=== PATIENT | female | born 1970 | race Caucasian/White ===

== ENCOUNTER 2017-07-26 10:19 | Inpatient (IN) | payer OTHER ==
--- NOTE | 2017-07-26 10:50 | HP ---
CIWA Score - CIWA Score Nausea/Vomitin-Mild Nausea/No Vomiting Muscle Tremors: 4-Moderate,w/Arms Extend Anxiety: 4-Mod. Anxious/Guarded Agitation: 1-Slight > Activity Paroxysmal Sweats: 1-Minimal Palms Moist Orientation: 0-Oriented Tacttile Disturbances: 1-Very Mild Itch/Numbness Auditory Disturbances: 1-Very Mild Visual Disturbances: 1-Very Mild Sensitivity Headache: 2-Mild CIWA-Ar Total Score: 16 Admission ROS BHS - HPI Chief Complaint: I need help Allergies/Adverse Reactions: Allergies Allergy/AdvReac Type Severity Reaction Status Date / Time No Known Allergies Allergy Unverified 01/26/13 13:18 History of Present Illness: 46 yo woman here for detox from alcohol. First time in detox. Patient reports moving here from [place]. She is on methadone program at [facility] - dosed today , 90mg. Patient on percocet 10 qid but aware we cannot give it to her here. She is also on prescribed xanax tid and aware she cannot receive that - asking for valium detox. Exam Limitations: Clinical Condition - Ebola screening Have you traveled outside of the country in the last 21 days: No Have you had contact with anyone from an Ebola affected area: No Do you have a fever: No - Review of Systems Constitutional: Loss of Appetite, Malaise, Changes in sleep, Weakness EENT: reports: No Symptoms Reported Respiratory: reports: No Symptoms reported Cardiac: reports: No Symptoms Reported GI: reports: Poor Appetite, Indigestion : reports: Frequency Musculoskeletal: reports: Back Pain, Joint Pain, Muscle Pain Integumentary: reports: No Symptoms Reported Neuro: reports: Headache Endocrine: reports: No Symptoms Reported Hematology: reports: No Symptoms Reported Psychiatric: reports: Judgement Intact, Mood/Affect Appropiate, Orientated x3, Anxious Other Systems: Reviewed and Negative Patient History - Patient Medical History Hx Anemia: No Hx Asthma: No Hx Chronic Obstructive Pulmonary Disease (COPD): No Hx Cancer: No Hx Cardiac Disorders: No Hx Hypertension: Yes Hx Hypercholesterolemia: No Hx Pacemaker: No HX Cerebrovascular Accident: No Hx Seizures: Yes (drug related last 4 months ago) Hx Diabetes: No Hx Liver Disease: No Hx Genitourinary Disorders: No Hx Sexually Transmitted Disorders: No Hx Renal Disease (ESRD): No Hx Thyroid Disease: No Hx Human Immunodeficiency Virus (HIV): No Hx Hepatitis C: No Hx Depression: Yes (with anxiety - on meds) Hx Suicide Attempt: No (denies) Hx Bipolar Disorder: Yes Hx Schizophrenia: No - Patient Surgical History Past Surgical History: Yes Other Surgical History: tonsillectomy - PPD History Previous Implant?: Yes Documented Results: Negative w/o proof Implanted On Prior R Admission?: No PPD to be Administered?: Yes - Reproductive History Patient is a Female of Child Bearing Age (11 -55 yrs old): Yes - Smoking Cessation Smoking history: Smoker current status UNK Have you smoked in the past 12 months: No Aproximately how many cigarettes per day: 0 Hx Chewing Tobacco Use: No - Substance & Tx. History Hx Alcohol Use: Yes Hx Substance Use: Yes Substance Use Type: Alcohol, Cocaine Hx Substance Use Treatment: Yes - Substances Abused Alcohol Route: Oral Frequency: Daily Amount used: 1/5 vodka; two six packs 18 oz beer Age of first use: 14 Date of Last Use: 07/26/17 Cocaine Route: Inhalation Frequency: Daily Amount used: 1gm Age of first use: 46 Date of Last Use: 07/25/17 Family Disease History - Family Disease History Family Disease History: Heart Disease: Mother (living, drug user - on methadone) , [place]: Brother (one - Noel sarcoma), Respiratory: Father (living ), Other: Father, Mother, Brother, Sister (one - - overdose), Daughter ( two - ages 18,21 - one 'special needs') Admission Physical Exam [facility] - Physical General Appearance: Yes: Nourished, Appropriately Dressed, Moderate Distress, Tremorous, Anxious HEENTM: Yes: Hearing grossly Normal, Normal ENT Inspection, Normocephalic, Normal Voice, Pharynx Normal Respiratory: Yes: Normal Breath Sounds, No Respiratory Distress Neck: Yes: No masses,lesions,Nodules, Supple Breast: Yes: Breast Exam Deferred Cardiology: Yes: Regular Rhythm, Regular Rate Abdominal: Yes: Flat, Soft Genitourinary: Yes: Within Normal Limits Back: Yes: Normal Inspection Musculoskeletal: Yes: full range of Motion, Gait Steady, Back pain, Other (knee pain - no erythema, no redness or swelling) Extremities: Yes: Normal Capillary Refill, Normal Inspection, Non-Tender Neurological: Yes: Fully Oriented, Alert, Normal Mood/Affect, Normal Response Integumentary: Yes: Normal Color, Warm Lymphatic: Yes: Within Normal Limits - Diagnostic (1) Alcohol dependence with uncomplicated withdrawal Current Visit: Yes Status: Chronic (2) Cocaine dependence Current Visit: Yes Status: Chronic Qualifiers: Substance use status: uncomplicated Qualified Code(s): F14.20 - Cocaine dependence, uncomplicated; F14.20 - Cocaine dependence, uncomplicated; F14.20 - Cocaine dependence, uncomplicated (3) HTN (hypertension) Current Visit: Yes Status: Chronic Qualifiers: Hypertension type: essential hypertension Qualified Code(s): I10 - Essential (primary) hypertension; I10 - Essential (primary) hypertension; I10 - Essential (primary) hypertension (4) History of seizure Current Visit: Yes Status: Chronic (5) Nicotine dependence Current Visit: Yes Status: Chronic Qualifiers: Nicotine product type: cigarettes (6) Arthritis Current Visit: Yes Status: Chronic Comment: rEFER TO X-RAY KNEE AND SPINE (7) Back pain Current Visit: Yes Status: Chronic Qualifiers: Back pain location: low back pain Chronicity: chronic Back pain laterality: midline Sciatica presence: without sciatica Qualified Code(s): M54.5 - Low back pain; M54.5 - Low back pain Comment: Referred to [facility] for x-rays (8) Knee pain, bilateral Current Visit: Yes Status: Chronic Qualifiers: Chronicity: chronic Qualified Code(s): M25.561 - Pain in right knee ; M25.561 - Pain in right knee; M25.562 - Pain in left knee; M25.562 - Pain in left knee Cleared for Admission [facility] - Detox or Rehab [facility] Level of Care: Medically Managed Detox Regimen/Protocol: Valium [facility] Breath Alcohol Content Breath Alcohol Content: 0.062
[2017-07-26 11:03] VITALS: BMI 28.8
[2017-07-26] MEDS ORDERED: hydrOXYzine PAMOATE 50 MG CAPSULE (FP) PO PRN (11:17)
[2017-07-26] MEDS ORDERED: NICOTINE POLACRILEX 2 MG GUM BUC PRN (11:17)
[2017-07-26] MEDS ORDERED: MAGNESIUM CITRATE 300 ML BOTTLE PO PRN (11:17)
[2017-07-26] MEDS ORDERED: guaiFENesin/D-METHORPHAN HB 10 ML UNIT-DOSE CUPS PO PRN (11:17)
[2017-07-26] MEDS ORDERED: ACETAMINOPHEN 325 MG TABLET (FP) PO PRN (11:17)
[2017-07-26] MEDS ORDERED: MAGNESIUM HYDROX 2400MG/30ML ORAL SUSPENSION 30 ML CUP PO PRN (11:17)
[2017-07-26] MEDS ORDERED: MAG HYDROX/AL HYDROX/SIMETH 30 ML UNIT-DOSE CUP PO PRN (11:17)
[2017-07-26] MEDS ORDERED: MENTHOL/PHENOL 1 EACH UD MM PRN (11:17)
[2017-07-26] MEDS ORDERED: LOPERAMIDE HCL 2 MG CAPSULE PO PRN (11:17)
[2017-07-26] MEDS ORDERED: P-EPHED 60MG/TRIPROLIDI 2.5MG TABLET PO PRN (11:17)
[2017-07-26] MEDS ORDERED: diazePAM 5 MG TABLET PO ONE (12:30)
[2017-07-26] MEDS: diazePAM 5 MG TABLET PO SCH ×2 (15:07→22:09)
[2017-07-26] MEDS: LIDOCAINE 5% TOPICAL PATCH TP SCH (15:33)
[2017-07-26] MEDS: NICOTINE 21 MG/24 HOURS TOPICAL PATCH TD SCH (15:33)
[2017-07-26 18:15] LABS: URINE APPEARANCE SLCLOUDY; URINE BILIRUBIN NEGATIVE (NEGATIVE); URINE BLOOD 1+ (NEGATIVE); URINE COLOR STRAW; URINE GLUCOSE (UA) NEGATIVE (NEGATIVE); URINE KETONE NEGATIVE (NEGATIVE); URINE NITRITE NEGATIVE (NEGATIVE); URINE PROTEIN NEGATIVE (NEGATIVE); URINE UROBILINOGEN NEGATIVE mg/dL (0.2-1.0)
[2017-07-26 18:28] LABS: URINE BACTERIA FEW /hpf (NONE SEEN); URINE MUCUS RARE; URINE RBC <1 /hpf (0-3)
[2017-07-26] MEDS: diazePAM 5 MG TABLET PO PRN (19:36)
[2017-07-26] MEDS ORDERED: diphenhydrAMINE HCL 50 MG CAPSULE PO PRN (22:00)
[2017-07-26] MEDS: HYDROCORTISONE 0.5% TOPICAL OINTMENT TUBE TP SCH (22:09)
[2017-07-26] MEDS: LIDOCAINE PATCH REMOVAL MC SCH (22:09)
[2017-07-26] MEDS: THIAMINE HCL 100 MG TABLET (FP) PO SCH (22:09)
[2017-07-26 22:42] LABS: URINE LEUK ESTERASE Negative (NEGATIVE)
[2017-07-27] MEDS: diazePAM 5 MG TABLET PO SCH ×3 (05:31→22:24)
[2017-07-27] MEDS: IBUPROFEN 400 MG TABLET (FP) PO PRN (09:09)
[2017-07-27] MEDS: diazePAM 5 MG TABLET PO PRN ×3 (09:09→17:32)
[2017-07-27] MEDS ORDERED: METHADONE HCL 40 MG DISPERSABLE TABLET PO SCH (09:15)
[2017-07-27] MEDS ORDERED: METHADONE HCL 40 MG DISPERSABLE TABLET ONE (09:32)
[2017-07-27] MEDS ORDERED: METHADONE HCL 10 MG TABLET ONE (09:33)
[2017-07-27] MEDS: METHADONE 80 MG, METHADONE 10 MG PO SCH (09:49)
[2017-07-27] MEDS: PRENATAL VITAMINS W/ FOLIC ACID TABLET (FP) PO SCH (09:49)
[2017-07-27] MEDS: amLODIPine BESYLATE 2.5 MG TABLET (FP) PO SCH (09:49)
[2017-07-27] MEDS: NICOTINE 21 MG/24 HOURS TOPICAL PATCH TD SCH (09:51)
[2017-07-27] MEDS: HYDROCORTISONE 0.5% TOPICAL OINTMENT TUBE TP SCH ×2 (09:51→22:26)
[2017-07-27 10:21] LABS: MCH 30.3 pg (25.7-33.7); MEAN CELL VOLUME 91.9 fl (80-96); MEAN PLT VOLUME 8.8 fl (7.5-11.1); PLATELET COUNT 285 K/MM3 (134-434); RDW 14.8 % (11.6-15.6); WHITE BLOOD COUNT 5.6 K/mm3 (4.0-10.0)
[2017-07-27 10:22] LABS: ANION GAP 5 (8-16); CO2 31 mmol/L (21-32); GLUCOSE,RANDOM 99 mg/dL (74-106)
[2017-07-27 10:24] LABS: ALK PHOS 76 U/L (45-117); BILIRUBIN,TOTAL 0.2 mg/dL (0.2-1.0); CREATININE 0.7 mg/dL (0.55-1.02); SGOT/AST 12 U/L (15-37); SGPT/ALT 15 U/L (12-78); TOT PROT 5.9 g/dl (6.4-8.2)
[2017-07-27] MEDS: LIDOCAINE 5% TOPICAL PATCH TP SCH (10:43)
--- NOTE | 2017-07-27 12:25 | PN ---
S CIWA - CIWA Score Nausea/Vomitin Muscle Tremors: 3 Anxiety: 3 Agitation: 3 Paroxysmal Sweats: 1-Minimal Palms Moist Orientation: 0-Oriented Tacttile Disturbances: 1-Very Mild Itch/Numbness Auditory Disturbances: 1-Very Mild Visual Disturbances: 0-None Headache: 2-Mild CIWA-Ar Total Score: 17 [facility] Progress Note (SOAP) Subjective: ALERT,IRRITABLE,ANXIOUS,INTERRUPTED SLEEP,TREMOR PAIN IN THE BODY AND BACK Objective: 07/27/17 12:23 Vital Signs Temperature 97.5 F L 07/27/17 09:55 Pulse Rate 75 07/27/17 09:55 Respiratory Rate 18 07/27/17 09:55 Blood Pressure 144/90 07/27/17 09:55 O2 Sat by Pulse Oximetry (%) EKG NSR,NORMAL ECG Laboratory Last Values WBC 5.6 K/mm3 (4.0-10.0) D 07/27/17 07:40 RBC 4.08 M/mm3 (3.60-5.2) 07/27/17 07:40 Hgb 12.4 GM/dL (10.7-15.3) 07/27/17 07:40 Hct 37.5 % (32.4-45.2) 07/27/17 07:40 MCV 91.9 fl (80-96) 07/27/17 07:40 MCH 30.3 pg (25.7-33.7) 07/27/17 07:40 MCHC 33.0 g/dl (32.0-36.0) 07/27/17 07:40 RDW 14.8 % (11.6-15.6) 07/27/17 07:40 Plt Count 285 K/MM3 (134-434) 07/27/17 07:40 MPV 8.8 fl (7.5-11.1) 07/27/17 07:40 Sodium 140 mmol/L (136-145) 07/27/17 07:40 Potassium 4.3 mmol/L (3.5-5.1) 07/27/17 07:40 Chloride 104 mmol/L (98-107) 07/27/17 07:40 Carbon Dioxide 31 mmol/L (21-32) 07/27/17 07:40 Anion Gap 5 (8-16) L 07/27/17 07:40 BUN 13 mg/dL (7-18) 07/27/17 07:40 Creatinine 0.7 mg/dL (0.55-1.02) 07/27/17 07:40 Creat Clearance w eGFR > 60 (>60) 07/27/17 07:40 Random Glucose 99 mg/dL (74-106) D 07/27/17 07:40 Calcium 9.0 mg/dL (8.5-10.1) 07/27/17 07:40 Total Bilirubin 0.2 mg/dL (0.2-1.0) D 07/27/17 07:40 AST 12 U/L (15-37) L 07/27/17 07:40 ALT 15 U/L (12-78) 07/27/17 07:40 Alkaline Phosphatase 76 U/L (45-117) 07/27/17 07:40 Total Protein 5.9 g/dl (6.4-8.2) L D 07/27/17 07:40 Albumin 3.0 g/dl (3.4-5.0) L D 07/27/17 07:40 Urine Color Straw 07/26/17 14:40 Urine Appearance Slcloudy 07/26/17 14:40 Urine pH 6.0 (5.0-8.0) 07/26/17 14:40 Ur Specific [place] <= 1.005 (1.005-1.025) 07/26/17 14:40 Urine Protein Negative (NEGATIVE) 07/26/17 14:40 Urine Glucose (UA) Negative (NEGATIVE) 07/26/17 14:40 Urine Ketones Negative (NEGATIVE) 07/26/17 14:40 Urine Blood 1+ (NEGATIVE) H 07/26/17 14:40 Urine Nitrite Negative (NEGATIVE) 07/26/17 14:40 Urine Bilirubin Negative (NEGATIVE) 07/26/17 14:40 Urine Urobilinogen Negative mg/dL (0.2-1.0) 07/26/17 14:40 Ur Leukocyte Esterase Negative (NEGATIVE) 07/26/17 14:40 Urine RBC <1 /hpf (0-3) 07/26/17 14:40 Urine WBC None /hpf (3-5) 07/26/17 14:40 Ur Epithelial Cells Many /hpf (FEW) 07/26/17 14:40 Urine Bacteria Few /hpf (NONE SEEN) 07/26/17 14:40 Urine Mucus Rare 07/26/17 14:40 RPR Titer Nonreactive (NONREACTIVE) 07/27/17 07:40 Assessment: 07/27/17 12:24 WITHDRAWAL SYMPTOM Plan: CONTINUE DETOX
[2017-07-27] MEDS ORDERED: CYCLOBENZAPRINE HCL 10 MG TABLET (FP) PO ONE (13:00)
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
--- NOTE | 2017-07-27 17:27 | EKG ---
Test Reason : Blood Pressure : / mmHG Vent. Rate : 078 BPM Atrial Rate : 078 BPM P-R Int : 136 ms QRS Dur : 078 ms QT Int : 412 ms P-R-T Axes : 048 037 029 degrees QTc Int : 469 ms NORMAL SINUS RHYTHM NONSPECIFIC ST ABNORMALITIES WHEN COMPARED WITH ECG OF 18-APR-2017 ST CHANGES MENTIONED ABOVE Confirmed by МАРИНА CASTANEDA MD ([id number]) on 07/27/2017 5:26:37 PM Referred By: Confirmed By:МАРИНА CASTANEDA MD
[2017-07-27] MEDS: VENLAFAXINE HCL 150 MG E.R. CAPSULE PO SCH (17:31)
[2017-07-27] MEDS: THIAMINE HCL 100 MG TABLET (FP) PO SCH (22:24)
[2017-07-27] MEDS: CYCLOBENZAPRINE HCL 10 MG TABLET (FP) PO PRN (22:26)
[2017-07-27] MEDS: ZOLPIDEM TARTRATE 10 MG TABLET (PARK CARE ONLY) PO PRN (22:26)
[2017-07-27] MEDS: LIDOCAINE PATCH REMOVAL MC SCH (22:28)
[2017-07-28] MEDS ORDERED: METHADONE HCL 10 MG TABLET ONE (04:19)
[2017-07-28] MEDS ORDERED: METHADONE HCL 40 MG DISPERSABLE TABLET ONE (04:19)
[2017-07-28] MEDS: METHADONE 80 MG, METHADONE 10 MG PO SCH (05:50)
[2017-07-28] MEDS: diazePAM 5 MG TABLET PO PRN ×3 (05:52→19:56)
[2017-07-28] MEDS: PRENATAL VITAMINS W/ FOLIC ACID TABLET (FP) PO SCH (10:23)
[2017-07-28] MEDS: amLODIPine BESYLATE 2.5 MG TABLET (FP) PO SCH (10:23)
[2017-07-28] MEDS: diazePAM 5 MG TABLET PO SCH ×2 (10:23→22:23)
[2017-07-28] MEDS: VENLAFAXINE HCL 150 MG E.R. CAPSULE PO SCH (10:23)
[2017-07-28] MEDS: NICOTINE 21 MG/24 HOURS TOPICAL PATCH TD SCH (10:23)
[2017-07-28] MEDS: HYDROCORTISONE 0.5% TOPICAL OINTMENT TUBE TP SCH ×2 (10:24→22:25)
[2017-07-28] MEDS: LIDOCAINE 5% TOPICAL PATCH TP SCH (10:24)
--- NOTE | 2017-07-28 11:28 | PN ---
BHS CIWA - CIWA Score Nausea/Vomitin Muscle Tremors: 3 Anxiety: 3 Agitation: 2 Paroxysmal Sweats: 1-Minimal Palms Moist Orientation: 0-Oriented Tacttile Disturbances: 1-Very Mild Itch/Numbness Auditory Disturbances: 1-Very Mild Visual Disturbances: 0-None Headache: 2-Mild CIWA-Ar Total Score: 16 BHS Progress Note (SOAP) Subjective: ALERT,IRRITABLE,ANXIOUS,INTERRUPTED SLEEP,TREMOR,PAIN IN THE BACK Objective: 07/28/17 11:26 Vital Signs Temperature 98.1 F 07/28/17 09:45 Pulse Rate 76 07/28/17 09:45 Respiratory Rate 18 07/28/17 09:45 Blood Pressure 141/99 07/28/17 09:45 O2 Sat by Pulse Oximetry (%) Assessment: 07/28/17 11:27 WITHDRAWAL SYMPTOM Plan: CONTINUE DETOX
[2017-07-28] MEDS: CYCLOBENZAPRINE HCL 10 MG TABLET (FP) PO PRN (11:32)
[2017-07-28] MEDS: IBUPROFEN 400 MG TABLET (FP) PO PRN (12:26)
[2017-07-28] MEDS: THIAMINE HCL 100 MG TABLET (FP) PO SCH (22:23)
[2017-07-28] MEDS: ZOLPIDEM TARTRATE 10 MG TABLET (PARK CARE ONLY) PO PRN (22:23)
[2017-07-28] MEDS: LIDOCAINE PATCH REMOVAL MC SCH (22:43)
[2017-07-29] MEDS ORDERED: METHADONE HCL 10 MG TABLET ONE (04:49)
[2017-07-29] MEDS ORDERED: METHADONE HCL 40 MG DISPERSABLE TABLET ONE (04:49)
[2017-07-29] MEDS: METHADONE 80 MG, METHADONE 10 MG PO SCH (05:15)
[2017-07-29] MEDS: diazePAM 5 MG TABLET PO PRN ×2 (05:17→09:23)
[2017-07-29 10:10] VITALS: BP 149/94; PULSE 86; TEMP 98.2
[2017-07-29] MEDS: VENLAFAXINE HCL 150 MG E.R. CAPSULE PO SCH (10:24)
[2017-07-29] MEDS: PRENATAL VITAMINS W/ FOLIC ACID TABLET (FP) PO SCH (10:24)
[2017-07-29] MEDS: HYDROCORTISONE 0.5% TOPICAL OINTMENT TUBE TP SCH (10:24)
[2017-07-29] MEDS: amLODIPine BESYLATE 2.5 MG TABLET (FP) PO SCH (10:24)
[2017-07-29] MEDS: NICOTINE 21 MG/24 HOURS TOPICAL PATCH TD SCH (10:25)
[2017-07-29] MEDS: LIDOCAINE 5% TOPICAL PATCH TP SCH (10:25)
[2017-07-29] MEDS: diazePAM 5 MG TABLET PO SCH (10:27)
--- NOTE | 2017-07-29 10:42 | PN ---
BHS Progress Note (SOAP) Subjective: ALERT,NO COMPLAINT Objective: 07/29/17 10:39 Vital Signs Temperature 98.2 F 07/29/17 10:09 Pulse Rate 86 07/29/17 10:09 Respiratory Rate 18 07/29/17 10:09 Blood Pressure 149/94 07/29/17 10:09 O2 Sat by Pulse Oximetry (%) PATIENT IS STABLE FOR DISCHARGE TODAY Assessment: 07/29/17 10:40 NO WITHDRAWAL SYMPTOM Plan: DISCHARGE TODAY,FOLLOW UP WITH AFTER CARE PROGRAM ARRANGEMENT
--- NOTE | 2017-07-29 10:45 | DS ---
[facility] Detox Discharge Summary Admission Date: 07/26/17 Discharge Date: 07/29/17 - History Present History: Alcohol Dependence, Cocaine Dependence, MMTP Additional Comments: FOLLOW UP WITH AFTER CARE PROGRAM ARRANGEMENT Pertinent Past History: HISTORY OF SEIZURE NICOTINE DEPENDENCE ARTHRITIS BACK PAIN BILATERAL KNEE PAIN - Physical Exam Results Vital Signs: Vital Signs Temperature 98.2 F 07/29/17 10:09 Pulse Rate 86 07/29/17 10:09 Respiratory Rate 18 07/29/17 10:09 Blood Pressure 149/94 07/29/17 10:09 O2 Sat by Pulse Oximetry (%) Pertinent Admission Physical Exam Findings: WITHDRAWAL SYMPTOM - Treatment Hospital Course: Detox Protocol Followed, Detoxed Safely, Responded well, Discharged Condition Good Patient has Accepted a Rehab Referral to: [facility] - Medication Discharge Medications: Ambulatory Orders Alprazolam 1 mg PO TID 06/26/17 Venlafaxine HCl [Effexor -] 100 mg PO DAILY 06/26/17 Heating Pad 1 each MC DAILY #1 each 07/11/17 Amlodipine Besylate [Norvasc -] 2.5 mg PO DAILY #30 tablet 07/17/17 Gabapentin [Neurontin -] 300 mg PO Q8H 07/26/17 Hydrocortisone 0.5% Ointment [Hytone 0.5% Ointment -] 1 applic TP BID 07/26/17 Methadone HCl [Methadose] 90 mg PO DAILY 07/26/17 Oxycodone HCl/Acetaminophen [Percocet 10-325 mg Tablet] 1 each PO QID 07/26/17 - Diagnosis (1) MDD (major depressive disorder), recurrent episode, moderate Current Visit: Yes Status: Acute (2) Opioid dependence on agonist therapy Current Visit: Yes Status: Acute (3) Alcohol dependence with uncomplicated withdrawal Current Visit: Yes Status: Chronic (4) Arthritis Current Visit: Yes Status: Chronic (5) Back pain Current Visit: Yes Status: Chronic Qualifiers: Back pain location: low back pain Chronicity: chronic Back pain laterality: midline Sciatica presence: without sciatica Qualified Code(s): M54.5 - Low back pain; M54.5 - Low back pain (6) Cocaine dependence Current Visit: Yes Status: Chronic Qualifiers: Substance use status: uncomplicated Qualified Code(s): F14.20 - Cocaine dependence, uncomplicated; F14.20 - Cocaine dependence, uncomplicated; F14.20 - Cocaine dependence, uncomplicated (7) HTN (hypertension) Current Visit: Yes Status: Chronic Qualifiers: Hypertension type: essential hypertension Qualified Code(s): I10 - Essential (primary) hypertension; I10 - Essential (primary) hypertension; I10 - Essential (primary) hypertension - AMA Did Patient Leave Against Medical Advice: No
[2017-07-30] MEDS ORDERED: diazePAM 5 MG TABLET PO SCH (10:00)
== END 2017-07-29 11:21 | disposition home or self-care (01) | DRG 773 ==
LOC: YASAS 10:19 → Y6N 12:18
PROVIDERS: ADMIT Internal Medicine; ATTEND Internal Medicine
PROC: HZ2ZZZZ Detoxification Services for Substance Abuse Treatment (ICD-10-PCS; principal; 2017-07-26)
DX: F11.23 Opioid dependence with withdrawal (principal); F10.230 Alcohol dependence with withdrawal, uncomplicated; F14.20 Cocaine dependence, uncomplicated; F33.2 Major depressive disorder, recurrent severe without psychotic features; I10 Essential (primary) hypertension; M19.90 Unspecified osteoarthritis, unspecified site; E03.9 Hypothyroidism, unspecified; M54.5 Low back pain; G89.29 Other chronic pain; M25.561 Pain in right knee; M25.562 Pain in left knee; Z86.69 Personal history of other diseases of the nervous system and sense organs; M79.7 Fibromyalgia; M32.9 Systemic lupus erythematosus, unspecified
CPT/HCPCS: 36415; 80053; 81003; 81015; 85027; 86593; 93005; 93010

== ENCOUNTER 2018-12-11 08:55 | Inpatient (IN) | payer OTHER ==
[2018-12-11 09:07] VITALS: BMI 33.5
--- NOTE | 2018-12-11 11:54 | HP ---
CIWA Score Nausea/Vomitin Muscle Tremors: 3 Anxiety: 2 Agitation: 2 Paroxysmal Sweats: 1-Minimal Palms Moist Orientation: 0-Oriented Tacttile Disturbances: 1-Very Mild Itch/Numbness Auditory Disturbances: 1-Very Mild Visual Disturbances: 0-None Headache: 2-Mild CIWA-Ar Total Score: 14 - Admission Criteria OASAS Guidelines: Admission for Medically Managed Detox: Requires at least one of the followin. CIWA greater than 12 2. Seizures within the past 24 hours 3. Delirium tremens within the past 24 hours 4. Hallucinations within the past 24 hours 5. Acute intervention needed for co occurring medical disorder 6. Acute intervention needed for co occurring psychiatric disorder 7. Severe withdrawal that cannot be handled at a lower level of care (continued vomiting, continued diarrhea, abnormal vital signs) requiring intravenous medication and/or fluids 8. Patient presents the following: CIWA greater than 12 Admission Criteria Met: Admission criteria met Admission ROS BHS - HPI Chief Complaint: i need help to stop drinking alcohol Allergies/Adverse Reactions: Allergies Allergy/AdvReac Type Severity Reaction Status Date / Time No Known Allergies Allergy Unverified 12/11/18 10:42 History of Present Illness: this 48 years old female with alcohol,xanax dependence,seeking detox,withdrawal symptom,last treatment 07/26/17 to 07/29/17, multiple admissions in the past,keep relapsing hypertension on no medication mttp 100 mgs po daily last medicated today both arthritis of both knees ecchymosis both knees nicotine dependence anxiety,major depression longest period of sobriety 2 years - Ebola screening Have you traveled outside of the country in the last 21 days: No (N) Have you had contact with anyone from an Ebola affected area: No Have you been sick,other than usual withdrawal symptoms: No Do you have a fever: No - Review of Systems Constitutional: Night Sweats, Changes in sleep, Weakness EENT: reports: Tearing, Nose Congestion Respiratory: reports: No Symptoms reported Cardiac: reports: No Symptoms Reported GI: reports: Nausea, Vomiting, Abdominal cramping : reports: No Symptoms Reported Musculoskeletal: reports: Back Pain, Joint Pain, Muscle Pain Integumentary: reports: Dryness Neuro: reports: Headache, Tremors Endocrine: reports: No Symptoms Reported Hematology: reports: No Symptoms Reported Psychiatric: reports: No Sypmtoms Reported, Judgement Intact, Mood/Affect Appropiate, Orientated x3, other (anxiety and depression) Other Systems: Reviewed and Negative Patient History - Patient Medical History Hx Anemia: No Hx Asthma: No Hx Chronic Obstructive Pulmonary Disease (COPD): No Hx Cancer: No Hx Cardiac Disorders: No Hx Hypertension: No Hx Hypercholesterolemia: No Hx Pacemaker: No HX Cerebrovascular Accident: No Hx Seizures: Yes (r/t high grade fever x2-last epiosde was at age 6) Hx Diabetes: No Hx Gastrointestinal Disorders: Yes (hiatal hernia) Hx Liver Disease: No Hx Genitourinary Disorders: No Hx Sexually Transmitted Disorders: No Hx Renal Disease (ESRD): No Hx Thyroid Disease: No Hx Human Immunodeficiency Virus (HIV): No Hx Hepatitis C: No Hx Depression: Yes Hx Suicide Attempt: Yes (cut left wrist at age 14) Hx Bipolar Disorder: Yes Hx Schizophrenia: No Other Medical History: no suicidal,no homicidal - Patient Surgical History Past Surgical History: Yes Hx Neurologic Surgery: No Hx Cataract Extraction: No Hx Cardiac Surgery: No Hx Lung Surgery: No Hx Breast Surgery: No Hx Breast Biopsy: No Hx Abdominal Surgery: No Hx Appendectomy: No Hx Cholecystectomy: No Hx Genitourinary Surgery: No Hx Section: No Hx Orthopedic Surgery: No Other Surgical History: tonsillectomy at age 29 Anesthesia Reaction: No - PPD History Previous Implant?: Yes Documented Results: Negative w/o proof Implanted On Prior [facility] Admission?: Yes Date: 07/28/17 Results: 0 mm PPD to be Administered?: Yes - Reproductive History Patient is a Female of Child Bearing Age (11 -55 yrs old): Yes Last Menstrual Period: 11/29/18 Patient : No - Smoking Cessation Smoking history: Current every day smoker Have you smoked in the past 12 months: Yes Aproximately how many cigarettes per day: 10 Hx Chewing Tobacco Use: No Initiated information on smoking cessation: Yes 'Breaking Loose' booklet given: 12/11/18 - Substance & Tx. History Hx Alcohol Use: Yes Hx Substance Use: Yes Substance Use Type: Alcohol, Marijuana Hx Substance Use Treatment: Yes ([facility] 07/26/17 to 07/29/17) - Substances Abused Alcohol-vodka/beer Route: Oral Frequency: Daily Amount used: 2 pts./2 1/2-6 pks. Age of first use: 14 Date of Last Use: 12/11/18 Marijuana Route: Smoking Frequency: 1-2 times per week Amount used: $5 Age of first use: 11 Date of Last Use: 12/10/18 Family Disease History - Family Disease History Family Disease History: Heart Disease: Mother (living, drug user - on methadone) , [place]: Brother (one - Noel sarcoma), Respiratory: Father (living ), Other: Father, Mother, Brother, Sister (one - - overdose), Daughter ( two - ages 18,21 - one 'special needs') Admission Physical Exam [facility] - Vital Signs Vital Signs: Vital Signs - 24 hr 12/11/18 09:05 Temperature 98.1 F Pulse Rate 91 H Respiratory 18 Rate Blood Pressure 146/79 - Physical General Appearance: Yes: Moderate Distress, Irritable HEENTM: Yes: Normal ENT Inspection, DALLIN, Pharynx Normal Respiratory: Yes: Within Normal Limits, Lungs Clear, Normal Breath Sounds Neck: Yes: Within Normal Limits, Supple, Trachea in good position Breast: Yes: Breast Exam Deferred Cardiology: Yes: Within Normal Limits, Regular Rhythm, Regular Rate, S1, S2 Abdominal: Yes: Within Normal Limits, Normal Bowel Sounds, Non Tender, Flat, Soft Genitourinary: Yes: Within Normal Limits Back: Yes: Muscle Spasm Musculoskeletal: Yes: Back pain, Joint Stiffness, Muscle Pain Extremities: Yes: Tremors, Other (ecchymosis legs) Neurological: Yes: athletic field custodian II-XII NML intact, Alert, Motor Strength 5/5 Integumentary: Yes: Dry Lymphatic: Yes: Within Normal Limits - Diagnostic (1) Opioid dependence on agonist therapy Current Visit: No Status: Acute (2) Alcohol dependence with uncomplicated withdrawal Current Visit: No Status: Chronic (3) Arthritis Current Visit: No Status: Chronic Comment: rEFER TO X-RAY KNEE AND SPINE (4) Back pain Current Visit: No Status: Chronic Qualifiers: Back pain location: low back pain Chronicity: chronic Back pain laterality: midline Sciatica presence: without sciatica Qualified Code(s): M54.5 - Low back pain; G89.29 - Other chronic pain Comment: Referred to [facility] for x-rays (5) Knee pain, bilateral Current Visit: No Status: Chronic Qualifiers: Chronicity: chronic Qualified Code(s): M25.561 - Pain in right knee; M25.562 - Pain in left knee; G89.29 - Other chronic pain (6) Nicotine dependence Current Visit: No Status: Chronic Qualifiers: Nicotine product type: cigarettes Cleared for Admission [facility] - Detox or Rehab [facility] Level of Care: Medically Managed Detox Regimen/Protocol: Librium [facility] Breath Alcohol Content Breath Alcohol Content: 0.025 Urine Pregancy Test - Result Urine Test Results: Negative- NO Line Present Urine Drug Screen - Results Drug Screen Negative: No Urine Drug Screen Results: THC-Marijuana, BZO-Benzodiazepines, MTD-Methadone Inpatient Rehab Admission - Rehab Decision to Admit Inpatient rehab admission?: No
[2018-12-11] MEDS ORDERED: LOPERAMIDE HCL 2 MG CAPSULE PO PRN (12:03)
[2018-12-11] MEDS ORDERED: MENTHOL/PHENOL 1 EACH UD MM PRN (12:03)
[2018-12-11] MEDS ORDERED: MAGNESIUM CITRATE 300 ML BOTTLE PO PRN (12:03)
[2018-12-11] MEDS ORDERED: guaiFENesin/D-METHORPHAN HB 10 ML UNIT-DOSE CUPS PO PRN (12:03)
[2018-12-11] MEDS ORDERED: P-EPHED 60MG/TRIPROLIDI 2.5MG TABLET PO PRN (12:03)
[2018-12-11] MEDS ORDERED: MAGNESIUM HYDROX 2400MG/30ML ORAL SUSPENSION 30 ML CUP PO PRN (12:03)
[2018-12-11] MEDS: NICOTINE 21 MG/24 HOURS TOPICAL PATCH TD SCH (13:26)
[2018-12-11] MEDS: chlordiazePOXIDE HCL 25 MG CAPSULE PO PRN (13:26)
[2018-12-11] MEDS: IBUPROFEN 400 MG TABLET (FP) PO PRN ×2 (13:26→19:53)
[2018-12-11] MEDS: FLUOCINONIDE 0.05% CREAM (15 GM TUBE) TP SCH ×2 (13:30→22:11)
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
[2018-12-11] MEDS: MAG HYDROX/AL HYDROX/SIMETH 30 ML UNIT-DOSE CUP PO PRN (16:34)
[2018-12-11] MEDS: chlordiazePOXIDE HCL 25 MG CAPSULE PO SCH ×2 (17:45→22:12)
[2018-12-11] MEDS: THIAMINE HCL 100 MG TABLET (FP) PO SCH (22:12)
[2018-12-11] MEDS: MELATONIN 5 MG TABLETS PO PRN (22:14)
[2018-12-12] MEDS ORDERED: METHADONE HCL 10 MG TABLET ONE (04:53)
[2018-12-12] MEDS ORDERED: METHADONE HCL 40 MG DISPERSABLE TABLET ONE (04:53)
[2018-12-12] MEDS: chlordiazePOXIDE HCL 25 MG CAPSULE PO SCH ×4 (05:15→22:10)
[2018-12-12] MEDS: METHADONE 80 MG, METHADONE 20 MG PO SCH (05:15)
[2018-12-12] MEDS ORDERED: METHADONE HCL 10 MG TABLET PO SCH (06:00)
[2018-12-12] MEDS: ACETAMINOPHEN 325 MG TABLET (FP) PO PRN ×2 (07:40→16:00)
[2018-12-12] MEDS: FLUOCINONIDE 0.05% CREAM (15 GM TUBE) TP SCH ×2 (10:16→22:33)
[2018-12-12] MEDS: VENLAFAXINE HCL 75 MG E.R. CAPSULES (FP) PO SCH (10:16)
[2018-12-12] MEDS: PRENATAL VITAMINS W/ FOLIC ACID TABLET (FP) PO SCH (10:16)
[2018-12-12] MEDS: NICOTINE 21 MG/24 HOURS TOPICAL PATCH TD SCH (10:16)
[2018-12-12] MEDS: IBUPROFEN 400 MG TABLET (FP) PO PRN (10:17)
[2018-12-12 10:37] LABS: HEMOGLOBIN 8.9 GM/dL (10.7-15.3); MCH 22.3 pg (25.7-33.7); MCHC 30.8 g/dl (32.0-36.0); MEAN CELL VOLUME 72.4 fl (80-96); MEAN PLT VOLUME 8.5 fl (7.5-11.1); PLATELET COUNT 448 K/MM3 (134-434); RDW 21.6 % (11.6-15.6); WHITE BLOOD COUNT 7.1 K/mm3 (4.0-10.0)
[2018-12-12 10:48] LABS: ALBUMIN 3.5 g/dl (3.4-5.0); ALK PHOS 139 U/L (45-117); ANION GAP 7 MMOL/L (8-16); BILIRUBIN,TOTAL 0.5 mg/dL (0.2-1); BLOOD UREA NITROGEN 6 mg/dL (7-18); CALCIUM 8.5 mg/dL (8.5-10.1); CHLORIDE 104 mmol/L (98-107); CO2 25 mmol/L (21-32); CREATININE 0.7 mg/dL (0.55-1.3); GLUCOSE,RANDOM 107 mg/dL (74-106); POTASSIUM 4.2 mmol/L (3.5-5.1); SGOT/AST 46 U/L (15-37); SGPT/ALT 39 U/L (13-61); SODIUM 136 mmol/L (136-145)
[2018-12-12] MEDS: hydrOXYzine PAMOATE 50 MG CAPSULE (FP) PO PRN ×2 (10:50→19:47)
--- NOTE | 2018-12-12 17:10 | PN ---
[facility] CIWA - CIWA Score Nausea/Vomitin-No Nausea/No Vomiting Muscle Tremors: 3 Anxiety: 3 Agitation: 4-Moderately Restless Paroxysmal Sweats: 3 Orientation: 0-Oriented Tacttile Disturbances: 0-None Auditory Disturbances: 0-None Visual Disturbances: 0-None Headache: 0-None Present CIWA-Ar Total Score: 13 S Progress Note (SOAP) Subjective: sweats shakes generalized body pain Objective: 12/12/18 17:07 A & O x 3 sitting up in bed with cane at bedside anxious Vital Signs Temperature 97.4 F L 12/12/18 13:26 Pulse Rate 74 12/12/18 13:26 Respiratory Rate 18 12/12/18 13:26 Blood Pressure 147/95 12/12/18 13:26 O2 Sat by Pulse Oximetry (%) Laboratory Last Values WBC 7.1 K/mm3 (4.0-10.0) 12/12/18 05:35 RBC 4.00 M/mm3 (3.60-5.2) 12/12/18 05:35 Hgb 8.9 GM/dL (10.7-15.3) L 12/12/18 05:35 Hct 29.0 % (32.4-45.2) L D 12/12/18 05:35 MCV 72.4 fl (80-96) L 12/12/18 05:35 MCH 22.3 pg (25.7-33.7) L 12/12/18 05:35 MCHC 30.8 g/dl (32.0-36.0) L 12/12/18 05:35 RDW 21.6 % (11.6-15.6) H 12/12/18 05:35 Plt Count 448 K/MM3 (134-434) H D 12/12/18 05:35 MPV 8.5 fl (7.5-11.1) 12/12/18 05:35 Sodium 136 mmol/L (136-145) 12/12/18 05:35 Potassium 4.2 mmol/L (3.5-5.1) 12/12/18 05:35 Chloride 104 mmol/L (98-107) 12/12/18 05:35 Carbon Dioxide 25 mmol/L (21-32) 12/12/18 05:35 Anion Gap 7 MMOL/L (8-16) L 12/12/18 05:35 BUN 6 mg/dL (7-18) L 12/12/18 05:35 Creatinine 0.7 mg/dL (0.55-1.3) 12/12/18 05:35 Creat Clearance w eGFR > 60 (>60) 12/12/18 05:35 Random Glucose 107 mg/dL (74-106) H 12/12/18 05:35 Calcium 8.5 mg/dL (8.5-10.1) 12/12/18 05:35 Total Bilirubin 0.5 mg/dL (0.2-1) 12/12/18 05:35 AST 46 U/L (15-37) H 12/12/18 05:35 ALT 39 U/L (13-61) 12/12/18 05:35 Alkaline Phosphatase 139 U/L (45-117) H 12/12/18 05:35 Total Protein 7.0 g/dl (6.4-8.2) 12/12/18 05:35 Albumin 3.5 g/dl (3.4-5.0) 12/12/18 05:35 RPR Titer Nonreactive (NONREACTIVE) 12/12/18 05:35 noted low hgb/HCT random glucose slightly elevated 12/12/18 17:09 Assessment: 12/12/18 17:08 withdrawal sx low blood count Plan: continue detox increase hydration FeOSOL for supplement
[2018-12-12] MEDS: MAG HYDROX/AL HYDROX/SIMETH 30 ML UNIT-DOSE CUP PO PRN (19:48)
[2018-12-12] MEDS: FERROUS SO4 325 MG TABLET (FP) PO SCH (22:10)
[2018-12-12] MEDS: THIAMINE HCL 100 MG TABLET (FP) PO SCH (22:10)
[2018-12-12] MEDS: MELATONIN 5 MG TABLETS PO PRN (22:12)
[2018-12-12] MEDS ORDERED: ONDANSETRON *ODT* 4 MG TABLET SL ONE (22:25)
--- NOTE | 2018-12-12 22:28 | PN ---
Karla Progress Note Note: Patient complained of nausea. Denies vomiting at this time Vital Signs Temperature 97 F L 12/12/18 21:37 Pulse Rate 91 H 12/12/18 21:37 Respiratory Rate 18 12/12/18 21:37 Blood Pressure 134/89 12/12/18 21:37 O2 Sat by Pulse Oximetry (%) Action: Zofran 4mg sublingual ordered
[2018-12-13] MEDS ORDERED: METHADONE HCL 10 MG TABLET ONE (02:19)
[2018-12-13] MEDS ORDERED: METHADONE HCL 40 MG DISPERSABLE TABLET ONE (02:19)
[2018-12-13] MEDS: MAG HYDROX/AL HYDROX/SIMETH 30 ML UNIT-DOSE CUP PO PRN (02:54)
[2018-12-13] MEDS: chlordiazePOXIDE HCL 25 MG CAPSULE PO SCH ×2 (05:40→10:25)
[2018-12-13] MEDS: METHADONE 80 MG, METHADONE 20 MG PO SCH (05:40)
[2018-12-13] MEDS: IBUPROFEN 400 MG TABLET (FP) PO PRN ×2 (08:37→16:59)
[2018-12-13] MEDS: hydrOXYzine PAMOATE 50 MG CAPSULE (FP) PO PRN ×3 (09:23→22:14)
[2018-12-13] MEDS: FERROUS SO4 325 MG TABLET (FP) PO SCH ×2 (10:25→22:14)
[2018-12-13] MEDS: NICOTINE 21 MG/24 HOURS TOPICAL PATCH TD SCH (10:25)
[2018-12-13] MEDS: FLUOCINONIDE 0.05% CREAM (15 GM TUBE) TP SCH ×2 (10:25→22:16)
[2018-12-13] MEDS: VENLAFAXINE HCL 75 MG E.R. CAPSULES (FP) PO SCH (10:25)
[2018-12-13] MEDS: PRENATAL VITAMINS W/ FOLIC ACID TABLET (FP) PO SCH (10:25)
[2018-12-13] MEDS ORDERED: BISACODYL 5 MG TABLET.DR (FP) PO ONE (11:45)
[2018-12-13] MEDS ORDERED: SODIUM PHOSPHATE/NA BIPHOS 133 ML ENEMA PR ONE (11:48)
--- NOTE | 2018-12-13 11:54 | PN ---
[facility] CIWA - CIWA Score Nausea/Vomitin-No Nausea/No Vomiting Muscle Tremors: 2 Anxiety: 1-Mildly Anxious Agitation: 2 Paroxysmal Sweats: 1-Minimal Palms Moist Orientation: 1-Uncertain about Date Tacttile Disturbances: 0-None Auditory Disturbances: 1-Very Mild Visual Disturbances: 0-None Headache: 1-Very Mild CIWA-Ar Total Score: 9 S Progress Note (SOAP) Subjective: ambulate with cane tremor sweating had methadone dose today report taking xanax 2 mg po bid x 16 years and sober from alcohol x 16 years recent sister and brother in coma patient is tearful denies self harm ideation Objective: 12/13/18 11:51 Vital Signs Temperature 97.0 F L 12/13/18 09:21 Pulse Rate 103 H 12/13/18 09:21 Respiratory Rate 20 12/13/18 09:21 Blood Pressure 148/90 12/13/18 09:21 O2 Sat by Pulse Oximetry (%) Laboratory Last Values WBC 7.1 K/mm3 (4.0-10.0) 12/12/18 05:35 RBC 4.00 M/mm3 (3.60-5.2) 12/12/18 05:35 Hgb 8.9 GM/dL (10.7-15.3) L 12/12/18 05:35 Hct 29.0 % (32.4-45.2) L D 12/12/18 05:35 MCV 72.4 fl (80-96) L 12/12/18 05:35 MCH 22.3 pg (25.7-33.7) L 12/12/18 05:35 MCHC 30.8 g/dl (32.0-36.0) L 12/12/18 05:35 RDW 21.6 % (11.6-15.6) H 12/12/18 05:35 Plt Count 448 K/MM3 (134-434) H D 12/12/18 05:35 MPV 8.5 fl (7.5-11.1) 12/12/18 05:35 Sodium 136 mmol/L (136-145) 12/12/18 05:35 Potassium 4.2 mmol/L (3.5-5.1) 12/12/18 05:35 Chloride 104 mmol/L (98-107) 12/12/18 05:35 Carbon Dioxide 25 mmol/L (21-32) 12/12/18 05:35 Anion Gap 7 MMOL/L (8-16) L 12/12/18 05:35 BUN 6 mg/dL (7-18) L 12/12/18 05:35 Creatinine 0.7 mg/dL (0.55-1.3) 12/12/18 05:35 Creat Clearance w eGFR > 60 (>60) 12/12/18 05:35 Random Glucose 107 mg/dL (74-106) H 12/12/18 05:35 Calcium 8.5 mg/dL (8.5-10.1) 12/12/18 05:35 Total Bilirubin 0.5 mg/dL (0.2-1) 12/12/18 05:35 AST 46 U/L (15-37) H 12/12/18 05:35 ALT 39 U/L (13-61) 12/12/18 05:35 Alkaline Phosphatase 139 U/L (45-117) H 12/12/18 05:35 Total Protein 7.0 g/dl (6.4-8.2) 12/12/18 05:35 Albumin 3.5 g/dl (3.4-5.0) 12/12/18 05:35 RPR Titer Nonreactive (NONREACTIVE) 12/12/18 05:35 lab noted patient wants to return to her xanax provider for her anxiety and continue xanax Assessment: 12/13/18 11:52 withdrawal sx constipation Plan: continue detox abdomen soft sound none tender bs + x 4 fleet enema dulcolax senna colace
[2018-12-13] MEDS: chlordiazePOXIDE HCL 25 MG CAPSULE PO PRN (14:51)
[2018-12-13] MEDS: chlordiazePOXIDE 5 MG CAPSULE PO SCH ×2 (17:01→22:13)
[2018-12-13] MEDS ORDERED: SENNOSIDES 8.6MG TABLET (FP) PO PRN (18:00)
[2018-12-13] MEDS: ACETAMINOPHEN 325 MG TABLET (FP) PO PRN (20:49)
[2018-12-13] MEDS: THIAMINE HCL 100 MG TABLET (FP) PO SCH (22:13)
[2018-12-13] MEDS: MELATONIN 5 MG TABLETS PO PRN (22:15)
[2018-12-13] MEDS: DOCUSATE SODIUM 100 MG CAPSULE (FP) PO SCH (22:16)
[2018-12-14] MEDS ORDERED: METHADONE HCL 40 MG DISPERSABLE TABLET ONE (04:17)
[2018-12-14] MEDS ORDERED: METHADONE HCL 10 MG TABLET ONE (04:17)
[2018-12-14] MEDS: METHADONE 80 MG, METHADONE 20 MG PO SCH (05:41)
[2018-12-14] MEDS: chlordiazePOXIDE 5 MG CAPSULE PO SCH ×2 (05:41→10:05)
--- NOTE | 2018-12-14 08:55 | PN ---
S Progress Note (SOAP) Subjective: sweats headache pain in knees back pain Objective: 12/14/18 08:51 A & O x 3 gait steady Vital Signs Temperature 98.0 F 12/14/18 06:45 Pulse Rate 89 12/14/18 06:45 Respiratory Rate 18 12/14/18 06:45 Blood Pressure 142/92 12/14/18 06:45 O2 Sat by Pulse Oximetry (%) Assessment: 12/14/18 08:53 Withdrawal steady Plan: continue detox For d/c in the a.m
[2018-12-14] MEDS: IBUPROFEN 400 MG TABLET (FP) PO PRN ×2 (08:58→18:17)
[2018-12-14] MEDS: hydrOXYzine PAMOATE 50 MG CAPSULE (FP) PO PRN ×3 (08:58→18:17)
[2018-12-14] MEDS: FLUOCINONIDE 0.05% CREAM (15 GM TUBE) TP SCH ×2 (10:05→22:13)
[2018-12-14] MEDS: PRENATAL VITAMINS W/ FOLIC ACID TABLET (FP) PO SCH (10:05)
[2018-12-14] MEDS: VENLAFAXINE HCL 75 MG E.R. CAPSULES (FP) PO SCH (10:05)
[2018-12-14] MEDS: FERROUS SO4 325 MG TABLET (FP) PO SCH ×2 (10:05→22:11)
[2018-12-14] MEDS: NICOTINE 21 MG/24 HOURS TOPICAL PATCH TD SCH (10:08)
[2018-12-14] MEDS: chlordiazePOXIDE HCL 10 MG CAPSULE PO SCH ×2 (16:45→22:11)
[2018-12-14] MEDS: DOCUSATE SODIUM 100 MG CAPSULE (FP) PO SCH (22:11)
[2018-12-14] MEDS: MELATONIN 5 MG TABLETS PO PRN (22:12)
[2018-12-14] MEDS: THIAMINE HCL 100 MG TABLET (FP) PO SCH (22:12)
[2018-12-15] MEDS ORDERED: METHADONE HCL 10 MG TABLET ONE (03:24)
[2018-12-15] MEDS ORDERED: METHADONE HCL 40 MG DISPERSABLE TABLET ONE (03:25)
[2018-12-15] MEDS: METHADONE 80 MG, METHADONE 20 MG PO SCH (05:46)
[2018-12-15] MEDS: chlordiazePOXIDE HCL 10 MG CAPSULE PO SCH ×2 (05:46→05:47)
[2018-12-15 06:39] VITALS: BP 140/96; PULSE 104; TEMP 97.9
--- NOTE | 2018-12-15 08:55 | DS ---
[facility] Detox Discharge Summary Admission Date: 12/11/18 Discharge Date: 12/15/18 - History Present History: Alcohol Dependence Additional Comments: 48 years old female admitted on 12/11/18 for alcohol withdrawal stabilization completed detox regimen [facility] patient left the detox unit around 6 am staff writer has not assessed nor evaluated the patient upon patient leaving the detox unit Pertinent Past History: information based on nursing reported that encourage aftercare appointments - Physical Exam Results Vital Signs: Vital Signs Temperature 97.9 F 12/15/18 05:45 Pulse Rate 104 H 12/15/18 05:45 Respiratory Rate 18 12/15/18 05:45 Blood Pressure 140/96 12/15/18 05:45 O2 Sat by Pulse Oximetry (%) Pertinent Admission Physical Exam Findings: alcohol withdrawal sx Laboratory Last Values WBC 7.1 K/mm3 (4.0-10.0) 12/12/18 05:35 RBC 4.00 M/mm3 (3.60-5.2) 12/12/18 05:35 Hgb 8.9 GM/dL (10.7-15.3) L 12/12/18 05:35 Hct 29.0 % (32.4-45.2) L D 12/12/18 05:35 MCV 72.4 fl (80-96) L 12/12/18 05:35 MCH 22.3 pg (25.7-33.7) L 12/12/18 05:35 MCHC 30.8 g/dl (32.0-36.0) L 12/12/18 05:35 RDW 21.6 % (11.6-15.6) H 12/12/18 05:35 Plt Count 448 K/MM3 (134-434) H D 12/12/18 05:35 MPV 8.5 fl (7.5-11.1) 12/12/18 05:35 Sodium 136 mmol/L (136-145) 12/12/18 05:35 Potassium 4.2 mmol/L (3.5-5.1) 12/12/18 05:35 Chloride 104 mmol/L (98-107) 12/12/18 05:35 Carbon Dioxide 25 mmol/L (21-32) 12/12/18 05:35 Anion Gap 7 MMOL/L (8-16) L 12/12/18 05:35 BUN 6 mg/dL (7-18) L 12/12/18 05:35 Creatinine 0.7 mg/dL (0.55-1.3) 12/12/18 05:35 Creat Clearance w eGFR > 60 (>60) 12/12/18 05:35 Random Glucose 107 mg/dL (74-106) H 12/12/18 05:35 Calcium 8.5 mg/dL (8.5-10.1) 12/12/18 05:35 Total Bilirubin 0.5 mg/dL (0.2-1) 12/12/18 05:35 AST 46 U/L (15-37) H 12/12/18 05:35 ALT 39 U/L (13-61) 12/12/18 05:35 Alkaline Phosphatase 139 U/L (45-117) H 12/12/18 05:35 Total Protein 7.0 g/dl (6.4-8.2) 12/12/18 05:35 Albumin 3.5 g/dl (3.4-5.0) 12/12/18 05:35 RPR Titer Nonreactive (NONREACTIVE) 12/12/18 05:35 lab noted - Treatment Hospital Course: Detox Protocol Followed, Detoxed Safely, Responded well, Discharged Condition Good, Rehab Referral Accepted Patient has Accepted a Rehab Referral to: community hospital - Medication Discharge Medications: Ambulatory Orders Venlafaxine HCl [Effexor -] 150 mg PO DAILY 06/26/17 Methadone [Dolophine -] 100 mg PO DAILY 12/11/18 - Diagnosis (1) Alcohol dependence with uncomplicated withdrawal Status: Acute (2) HTN (hypertension) Status: Chronic Qualifiers: Hypertension type: essential hypertension Qualified Code(s): I10 - Essential (primary) hypertension (3) Nicotine dependence Status: Acute Qualifiers: Nicotine product type: cigarettes Substance use status: in withdrawal Qualified Code(s): F17.213 - Nicotine dependence, cigarettes, with withdrawal (4) Opioid dependence on agonist therapy Status: Acute (5) Substance induced mood disorder Status: Suspected - AMA Did Patient Leave Against Medical Advice: No
== END 2018-12-15 06:08 | disposition home or self-care (01) | DRG 773 ==
LOC: YASAS 08:55 → Y3N 12:26
PROVIDERS: ADMIT Surgery; ATTEND Surgery
PROC: HZ2ZZZZ Detoxification Services for Substance Abuse Treatment (ICD-10-PCS; principal; 2018-12-11)
DX: F10.230 Alcohol dependence with withdrawal, uncomplicated (principal); F11.20 Opioid dependence, uncomplicated; F12.10 Cannabis abuse, uncomplicated; F17.213 Nicotine dependence, cigarettes, with withdrawal; F19.24 Other psychoactive substance dependence with psychoactive substance-induced mood disorder; F33.1 Major depressive disorder, recurrent, moderate; I10 Essential (primary) hypertension; K59.00 Constipation, unspecified; G47.00 Insomnia, unspecified; E03.9 Hypothyroidism, unspecified; M25.561 Pain in right knee; M25.562 Pain in left knee; G89.29 Other chronic pain; M13.862 Other specified arthritis, left knee; M13.861 Other specified arthritis, right knee; E66.9 Obesity, unspecified; Z68.33 Body mass index [BMI] 33.0-33.9, adult; Z91.5 Personal history of self-harm
CPT/HCPCS: 36415; 80053; 85027; 86593; Q0162

== ENCOUNTER 2022-04-09 12:10 | Inpatient (IN) | payer OTHER ==
[2022-04-09 13:25] VITALS: BMI 30.1
[2022-04-09] MEDS ORDERED: MAGNESIUM CITRATE 300 ML BOTTLE PO PRN (13:47)
[2022-04-09] MEDS ORDERED: BENZOCAINE/MENTHOL (CHLORASEPTIC ) LOZENGE MM PRN (13:47)
[2022-04-09] MEDS ORDERED: BISMUTH SUBSALICYLATE 524 MG/30 ML PO PRN (13:47)
[2022-04-09] MEDS ORDERED: LOPERAMIDE HCL 2 MG CAPSULE PO PRN (13:47)
[2022-04-09] MEDS ORDERED: MAGNESIUM HYDROX 2400MG/30ML ORAL SUSPENSION 30 ML CUP PO PRN (13:47)
[2022-04-09] MEDS ORDERED: ACETAMINOPHEN 325 MG TABLET (FP) PO PRN ×2 (13:47)
[2022-04-09] MEDS ORDERED: DICYCLOMINE HCL 10 MG CAPSULE PO PRN (13:47)
[2022-04-09] MEDS ORDERED: chlordiazePOXIDE HCL 25 MG CAPSULE ONE (14:05)
[2022-04-09] MEDS ORDERED: ONDANSETRON *ODT* 4 MG TABLET ONE (14:05)
[2022-04-09] MEDS ORDERED: hydrOXYzine PAMOATE 25 MG CAPSULE (FP) PO ONE (14:05)
[2022-04-09] MEDS: hydrOXYzine PAMOATE 25 MG CAPSULE (FP) PO SCH ×2 (14:10→17:15)
[2022-04-09] MEDS: ONDANSETRON *ODT* 4 MG TABLET SL PRN (14:10)
[2022-04-09] MEDS: chlordiazePOXIDE HCL 25 MG CAPSULE PO PRN (14:10)
[2022-04-09] MEDS: METHOCARBAMOL 500 MG TABLET PO PRN (15:39)
[2022-04-09] MEDS: IBUPROFEN 600 MG TABLET (FP) PO PRN (15:39)
[2022-04-09] MEDS: PRENATAL VITAMINS W/ FOLIC ACID TABLET (FP) PO SCH (15:39)
[2022-04-09] MEDS: chlordiazePOXIDE HCL 25 MG CAPSULE PO SCH ×2 (17:15→22:18)
[2022-04-09 18:08] LABS: HEMATOCRIT 33.3 % (32.4-45.2); HEMOGLOBIN 10.2 GM/dL (10.7-15.3); MCH 20.9 pg (25.7-33.7); MCHC 30.6 g/dl (32.0-36.0); MEAN CELL VOLUME 68.2 fl (80-96); MEAN PLT VOLUME 8.3 fl (7.5-11.1); PLATELET COUNT 435 10^3/uL (134-434); RBC 4.88 M/mm3 (3.60-5.2); RDW 21.1 % (11.6-15.6); WHITE BLOOD COUNT 8.9 K/mm3 (4.0-10.0)
[2022-04-09 18:09] LABS: BLOOD UREA NITROGEN 19.2 mg/dL (7-18); CALCIUM 9.6 mg/dL (8.5-10.1)
[2022-04-09 18:12] LABS: CREATININE 0.9 mg/dL (0.55-1.3)
[2022-04-09 18:13] LABS: BILIRUBIN,TOTAL 0.6 mg/dL (0.2-1)
[2022-04-09 18:14] LABS: TOT PROT 7.4 g/dl (6.4-8.2)
[2022-04-09] MEDS: THIAMINE HCL 100 MG TABLET (FP) PO SCH (22:18)
[2022-04-09] MEDS: MELATONIN 5 MG TABLETS PO SCH (22:18)
[2022-04-09] MEDS: NICOTINE 10 MG CARTRIDGE (INHALER) IH PRN (22:20)
[2022-04-10] MEDS: chlordiazePOXIDE HCL 25 MG CAPSULE PO SCH ×4 (05:03→22:20)
[2022-04-10] MEDS ORDERED: methaDONE HCL 10 MG TABLET PO SCH (07:30)
[2022-04-10] MEDS: IBUPROFEN 600 MG TABLET (FP) PO PRN (07:46)
[2022-04-10] MEDS: METHOCARBAMOL 500 MG TABLET PO PRN ×2 (07:48→22:29)
[2022-04-10] MEDS ORDERED: methaDONE 40 MG, methaDONE 20 MG PO ONE (08:00)
[2022-04-10] MEDS ORDERED: methaDONE HCL 40 MG DISPERSABLE TABLET ONE (08:36)
[2022-04-10] MEDS ORDERED: methaDONE HCL 10 MG TABLET ONE (08:36)
[2022-04-10] MEDS: PRENATAL VITAMINS W/ FOLIC ACID TABLET (FP) PO SCH (10:21)
[2022-04-10] MEDS: ONDANSETRON *ODT* 4 MG TABLET SL PRN ×2 (10:21→22:20)
[2022-04-10] MEDS: NICOTINE 14 MG/24 HOURS TOPICAL PATCH TD SCH (10:24)
[2022-04-10] MEDS: chlordiazePOXIDE HCL 25 MG CAPSULE PO PRN (15:30)
[2022-04-10] MEDS: IBUPROFEN 400 MG TABLET (FP) PO PRN (17:31)
[2022-04-10] MEDS: MAG HYDROX/AL HYDROX/SIMETH 30 ML UNIT-DOSE CUP PO PRN (18:07)
[2022-04-10] MEDS: THIAMINE HCL 100 MG TABLET (FP) PO SCH (22:21)
[2022-04-10] MEDS: MELATONIN 5 MG TABLETS PO SCH (22:21)
[2022-04-11] MEDS: chlordiazePOXIDE HCL 25 MG CAPSULE PO PRN ×2 (02:29→13:39)
[2022-04-11] MEDS: IBUPROFEN 400 MG TABLET (FP) PO PRN (02:29)
[2022-04-11] MEDS ORDERED: methaDONE HCL 10 MG TABLET ONE (04:54)
[2022-04-11] MEDS ORDERED: methaDONE HCL 40 MG DISPERSABLE TABLET ONE (04:54)
[2022-04-11] MEDS: methaDONE 40 MG, methaDONE 20 MG PO SCH (06:09)
[2022-04-11] MEDS: METHOCARBAMOL 500 MG TABLET PO PRN (06:09)
[2022-04-11] MEDS: chlordiazePOXIDE HCL 25 MG CAPSULE PO SCH ×4 (06:09→22:22)
[2022-04-11] MEDS: PRENATAL VITAMINS W/ FOLIC ACID TABLET (FP) PO SCH (10:20)
[2022-04-11] MEDS: NICOTINE 14 MG/24 HOURS TOPICAL PATCH TD SCH (10:21)
[2022-04-11] MEDS: ONDANSETRON *ODT* 4 MG TABLET SL PRN (10:21)
[2022-04-11] MEDS ORDERED: PATIENT'S OWN MEDICATION (NON-FORMULARY) (Omeprazole Magnesium [Prilosec] 10 MG Suspdr.Pkt PO SCH (12:45)
[2022-04-11] MEDS ORDERED: ARIPiprazole 10 MG TABLET PO ONE (12:54)
[2022-04-11] MEDS: PANTOPRAZOLE 20 MG TABLET PO SCH (13:42)
[2022-04-11] MEDS: ARIPiprazole 10 MG TABLET PO SCH (13:42)
[2022-04-11] MEDS: IBUPROFEN 600 MG TABLET (FP) PO PRN (17:52)
[2022-04-11] MEDS: MELATONIN 5 MG TABLETS PO SCH (22:22)
[2022-04-11] MEDS: THIAMINE HCL 100 MG TABLET (FP) PO SCH (22:22)
[2022-04-11] MEDS: LITHIUM CARBONATE 300 MG CAPSULE PO SCH (22:22)
[2022-04-12] MEDS ORDERED: chlordiazePOXIDE HCL 10 MG CAPSULE PO PRN
[2022-04-12] MEDS ORDERED: methaDONE HCL 40 MG DISPERSABLE TABLET ONE (04:30)
[2022-04-12] MEDS ORDERED: methaDONE HCL 10 MG TABLET ONE (04:30)
[2022-04-12] MEDS: methaDONE 40 MG, methaDONE 20 MG PO SCH (06:10)
[2022-04-12] MEDS: METHOCARBAMOL 500 MG TABLET PO PRN (06:11)
[2022-04-12] MEDS: chlordiazePOXIDE HCL 10 MG CAPSULE PO SCH ×4 (06:11→22:20)
[2022-04-12] MEDS: NICOTINE 14 MG/24 HOURS TOPICAL PATCH TD SCH (10:27)
[2022-04-12] MEDS: NICOTINE 10 MG CARTRIDGE (INHALER) IH PRN (10:27)
[2022-04-12] MEDS: ARIPiprazole 10 MG TABLET PO SCH (10:28)
[2022-04-12] MEDS: PANTOPRAZOLE 20 MG TABLET PO SCH (10:28)
[2022-04-12] MEDS: PRENATAL VITAMINS W/ FOLIC ACID TABLET (FP) PO SCH (10:28)
[2022-04-12] MEDS: ONDANSETRON *ODT* 4 MG TABLET SL PRN (10:30)
[2022-04-12] MEDS: LITHIUM CARBONATE 300 MG CAPSULE PO SCH (22:19)
[2022-04-12] MEDS: MELATONIN 5 MG TABLETS PO SCH (22:19)
[2022-04-12] MEDS: THIAMINE HCL 100 MG TABLET (FP) PO SCH (22:19)
[2022-04-12] MEDS: IBUPROFEN 600 MG TABLET (FP) PO PRN (22:21)
[2022-04-13] MEDS ORDERED: methaDONE HCL 40 MG DISPERSABLE TABLET ONE (04:45)
[2022-04-13] MEDS ORDERED: methaDONE HCL 10 MG TABLET ONE (04:45)
[2022-04-13] MEDS: chlordiazePOXIDE HCL 10 MG CAPSULE PO SCH ×2 (05:30→18:29)
[2022-04-13] MEDS: methaDONE 40 MG, methaDONE 20 MG PO SCH (05:30)
[2022-04-13] MEDS: NICOTINE 10 MG CARTRIDGE (INHALER) IH PRN (07:05)
[2022-04-13] MEDS: ARIPiprazole 10 MG TABLET PO SCH (10:27)
[2022-04-13] MEDS: PANTOPRAZOLE 20 MG TABLET PO SCH (10:27)
[2022-04-13] MEDS: NICOTINE 14 MG/24 HOURS TOPICAL PATCH TD SCH (10:28)
[2022-04-13] MEDS: PRENATAL VITAMINS W/ FOLIC ACID TABLET (FP) PO SCH (10:28)
[2022-04-13] MEDS: IBUPROFEN 400 MG TABLET (FP) PO PRN (10:29)
[2022-04-13] MEDS: MAG HYDROX/AL HYDROX/SIMETH 30 ML UNIT-DOSE CUP PO PRN (13:49)
[2022-04-13] MEDS: ONDANSETRON *ODT* 4 MG TABLET SL PRN (18:31)
[2022-04-13] MEDS: MELATONIN 5 MG TABLETS PO SCH (22:25)
[2022-04-13] MEDS: LITHIUM CARBONATE 300 MG CAPSULE PO SCH (22:25)
[2022-04-13] MEDS: THIAMINE HCL 100 MG TABLET (FP) PO SCH (22:25)
[2022-04-14] MEDS ORDERED: methaDONE HCL 40 MG DISPERSABLE TABLET ONE (04:17)
[2022-04-14] MEDS ORDERED: methaDONE HCL 10 MG TABLET ONE (04:17)
[2022-04-14] MEDS ORDERED: chlordiazePOXIDE HCL 10 MG CAPSULE PO ONE (05:00)
[2022-04-14] MEDS: methaDONE 40 MG, methaDONE 20 MG PO SCH (05:35)
[2022-04-14 09:11] VITALS: BP 167/68; PULSE 68; TEMP 97.1
== END 2022-04-14 09:32 | disposition home or self-care (01) | DRG 773 ==
LOC: YASAS 12:10 → Y3N 14:20
PROVIDERS: ADMIT Allergy & Immunology; ATTEND Surgery
PROC: HZ2ZZZZ Detoxification Services for Substance Abuse Treatment (ICD-10-PCS; principal; 2022-04-09)
DX: F10.230 Alcohol dependence with withdrawal, uncomplicated (principal); F11.20 Opioid dependence, uncomplicated; F14.20 Cocaine dependence, uncomplicated; F12.10 Cannabis abuse, uncomplicated; F17.210 Nicotine dependence, cigarettes, uncomplicated; I10 Essential (primary) hypertension; E03.9 Hypothyroidism, unspecified; R76.0 Raised antibody titer; M17.0 Bilateral primary osteoarthritis of knee; M54.9 Dorsalgia, unspecified; G89.29 Other chronic pain; G47.00 Insomnia, unspecified; E66.9 Obesity, unspecified; Z68.30 Body mass index [BMI] 30.0-30.9, adult; Z62.810 Personal history of physical and sexual abuse in childhood; Z86.69 Personal history of other diseases of the nervous system and sense organs; Z96.653 Presence of artificial knee joint, bilateral; Z91.51 Personal history of suicidal behavior; Z56.0 Unemployment, unspecified
CPT/HCPCS: 36415; 80053; 81025; 85027; 86780; 93005; 93010; C9803-CS; Q0162; U0003; U0005

== ENCOUNTER 2022-11-07 12:00 | Inpatient (IN) | payer OTHER ==
[2022-11-07 13:18] VITALS: BMI 26.6
[2022-11-07] MEDS ORDERED: ACETAMINOPHEN 325 MG TABLET (FP) PO PRN ×2 (14:06)
[2022-11-07] MEDS ORDERED: POLYETHYLENE GLYCOL (HEALTHYLAX) 3350 17 GM PACKET PO PRN (14:06)
[2022-11-07] MEDS ORDERED: LOPERAMIDE HCL 2 MG CAPSULE PO PRN (14:06)
[2022-11-07] MEDS ORDERED: DICYCLOMINE HCL 10 MG CAPSULE PO PRN (14:06)
[2022-11-07] MEDS ORDERED: MAG HYDROX/AL HYDROX/SIMETH 30 ML UNIT-DOSE CUP PO PRN (14:06)
[2022-11-07] MEDS ORDERED: IBUPROFEN 600 MG TABLET (FP) PO PRN (14:06)
[2022-11-07] MEDS ORDERED: IBUPROFEN 400 MG TABLET (FP) PO PRN (14:06)
[2022-11-07] MEDS ORDERED: NALOXONE HCL (KLOXXADO) 8 MG SPRAY NS PRN (14:06)
[2022-11-07] MEDS ORDERED: BISMUTH SUBSALICYLATE 524 MG/30 ML PO PRN (14:06)
[2022-11-07] MEDS ORDERED: ONDANSETRON *ODT* 4 MG TABLET SL PRN (14:06)
[2022-11-07] MEDS ORDERED: BENZOCAINE/MENTHOL (CHLORASEPTIC ) LOZENGE MM PRN (14:06)
[2022-11-07] MEDS ORDERED: chlordiazePOXIDE HCL 25 MG CAPSULE ONE (14:47)
[2022-11-07] MEDS: chlordiazePOXIDE HCL 25 MG CAPSULE PO PRN ×2 (14:49→20:22)
[2022-11-07] MEDS: chlordiazePOXIDE HCL 25 MG CAPSULE PO SCH ×2 (17:12→22:46)
[2022-11-07] MEDS: METHOCARBAMOL 500 MG TABLET PO PRN (17:15)
[2022-11-07] MEDS: MELATONIN 5 MG TABLETS PO SCH (22:45)
[2022-11-07] MEDS: THIAMINE HCL 100 MG TABLET (FP) PO SCH (22:45)
[2022-11-08] MEDS: chlordiazePOXIDE HCL 25 MG CAPSULE PO SCH ×4 (05:48→22:33)
[2022-11-08] MEDS: NICOTINE 10 MG CARTRIDGE (INHALER) IH PRN ×2 (07:47→18:31)
[2022-11-08] MEDS: chlordiazePOXIDE HCL 25 MG CAPSULE PO PRN (08:56)
[2022-11-08] MEDS ORDERED: methaDONE HCL 10 MG TABLET PO ONE (09:58)
[2022-11-08] MEDS ORDERED: methaDONE 40 MG, methaDONE 20 MG PO ONE (10:15)
[2022-11-08] MEDS: PRENATAL VITAMINS W/ FOLIC ACID TABLET (FP) PO SCH (10:18)
[2022-11-08] MEDS: LITHIUM CARBONATE 150 MG CAPSULE PO SCH ×2 (11:44→22:33)
[2022-11-08] MEDS: ARIPiprazole 10 MG TABLET PO SCH (11:45)
[2022-11-08 12:01] LABS: HEMOGLOBIN 12.8 GM/dL (10.7-15.3); MCH 27.5 pg (25.7-33.7); MEAN CELL VOLUME 85.9 fl (80-96); MEAN PLT VOLUME 8.6 fl (7.5-11.1); PLATELET COUNT 361 10^3/uL (134-434); RBC 4.66 M/mm3 (3.60-5.2); RDW 17.6 % (11.6-15.6); WHITE BLOOD COUNT 5.5 K/mm3 (4.0-10.0)
[2022-11-08 12:05] LABS: ALBUMIN 3.6 g/dl (3.4-5.0); BLOOD UREA NITROGEN 15.2 mg/dL (7-18); CALCIUM 9.4 mg/dL (8.5-10.1)
[2022-11-08 12:08] LABS: CREATININE 0.7 mg/dL (0.55-1.3)
[2022-11-08 12:10] LABS: BILIRUBIN,TOTAL 0.5 mg/dL (0.2-1); TOT PROT 6.7 g/dl (6.4-8.2)
[2022-11-08] MEDS: traZODone HCL 50 MG TABLET (FP) PO SCH (22:33)
[2022-11-08] MEDS: THIAMINE HCL 100 MG TABLET (FP) PO SCH (22:33)
[2022-11-08] MEDS: MELATONIN 5 MG TABLETS PO SCH (22:36)
[2022-11-09] MEDS: chlordiazePOXIDE HCL 25 MG CAPSULE PO SCH ×4 (05:38→22:26)
[2022-11-09] MEDS: methaDONE 40 MG, methaDONE 20 MG PO SCH (05:39)
[2022-11-09] MEDS ORDERED: methaDONE HCL 40 MG DISPERSABLE TABLET PO SCH (06:00)
[2022-11-09] MEDS: PRENATAL VITAMINS W/ FOLIC ACID TABLET (FP) PO SCH (10:11)
[2022-11-09] MEDS: ARIPiprazole 10 MG TABLET PO SCH (10:11)
[2022-11-09] MEDS: METHOCARBAMOL 500 MG TABLET PO PRN ×3 (10:11→22:27)
[2022-11-09] MEDS: LITHIUM CARBONATE 150 MG CAPSULE PO SCH ×2 (10:11→22:25)
[2022-11-09] MEDS: THIAMINE HCL 100 MG TABLET (FP) PO SCH (22:25)
[2022-11-09] MEDS: MELATONIN 5 MG TABLETS PO SCH (22:25)
[2022-11-09] MEDS: traZODone HCL 50 MG TABLET (FP) PO SCH (22:25)
[2022-11-10] MEDS ORDERED: chlordiazePOXIDE HCL 10 MG CAPSULE PO PRN
[2022-11-10] MEDS: chlordiazePOXIDE HCL 10 MG CAPSULE PO SCH ×4 (05:36→22:06)
[2022-11-10] MEDS: methaDONE 40 MG, methaDONE 20 MG PO SCH (05:36)
[2022-11-10] MEDS: METHOCARBAMOL 500 MG TABLET PO PRN (07:46)
[2022-11-10] MEDS: PRENATAL VITAMINS W/ FOLIC ACID TABLET (FP) PO SCH (10:13)
[2022-11-10] MEDS: LITHIUM CARBONATE 150 MG CAPSULE PO SCH ×2 (10:13→22:21)
[2022-11-10] MEDS: ARIPiprazole 10 MG TABLET PO SCH (10:13)
[2022-11-10] MEDS: MAGNESIUM HYDROX 2400MG/30ML ORAL SUSPENSION 30 ML CUP PO PRN (14:27)
[2022-11-10] MEDS: MELATONIN 5 MG TABLETS PO SCH (22:21)
[2022-11-10] MEDS: THIAMINE HCL 100 MG TABLET (FP) PO SCH (22:21)
[2022-11-10] MEDS: traZODone HCL 50 MG TABLET (FP) PO SCH (22:21)
[2022-11-11] MEDS: chlordiazePOXIDE HCL 10 MG CAPSULE PO SCH ×2 (05:54→17:35)
[2022-11-11] MEDS: methaDONE 40 MG, methaDONE 20 MG PO SCH (05:55)
[2022-11-11] MEDS: NICOTINE 10 MG CARTRIDGE (INHALER) IH PRN (09:11)
[2022-11-11] MEDS: METHOCARBAMOL 500 MG TABLET PO PRN ×2 (10:11→22:26)
[2022-11-11] MEDS: LITHIUM CARBONATE 150 MG CAPSULE PO SCH ×2 (10:11→22:25)
[2022-11-11] MEDS: PRENATAL VITAMINS W/ FOLIC ACID TABLET (FP) PO SCH (10:11)
[2022-11-11] MEDS: ARIPiprazole 10 MG TABLET PO SCH (10:11)
[2022-11-11] MEDS: MAGNESIUM HYDROX 2400MG/30ML ORAL SUSPENSION 30 ML CUP PO PRN (10:18)
[2022-11-11 16:51] VITALS: RESP 18
[2022-11-11] MEDS: THIAMINE HCL 100 MG TABLET (FP) PO SCH (22:25)
[2022-11-11] MEDS: traZODone HCL 50 MG TABLET (FP) PO SCH (22:25)
[2022-11-11] MEDS: MELATONIN 5 MG TABLETS PO SCH (22:25)
[2022-11-12] MEDS ORDERED: chlordiazePOXIDE HCL 10 MG CAPSULE PO ONE (05:00)
[2022-11-12] MEDS: methaDONE 40 MG, methaDONE 20 MG PO SCH (05:34)
[2022-11-12] MEDS: NICOTINE 10 MG CARTRIDGE (INHALER) IH PRN ×2 (09:45→14:44)
[2022-11-12] MEDS: ARIPiprazole 10 MG TABLET PO SCH (10:11)
[2022-11-12] MEDS: METHOCARBAMOL 500 MG TABLET PO PRN (10:11)
[2022-11-12] MEDS: LITHIUM CARBONATE 150 MG CAPSULE PO SCH (10:11)
[2022-11-12] MEDS: PRENATAL VITAMINS W/ FOLIC ACID TABLET (FP) PO SCH (10:11)
[2022-11-12 12:59] VITALS: BP 120/64; PULSE 79; TEMP 96.8
== END 2022-11-12 15:35 | disposition other institution (70) | DRG 773 ==
LOC: YASAS 12:00 → Y6N 15:23
PROVIDERS: ADMIT Allergy & Immunology; ATTEND Family Medicine
PROC: HZ2ZZZZ Detoxification Services for Substance Abuse Treatment (ICD-10-PCS; principal; 2022-11-07)
DX: F10.230 Alcohol dependence with withdrawal, uncomplicated (principal); F11.20 Opioid dependence, uncomplicated; F14.20 Cocaine dependence, uncomplicated; F17.210 Nicotine dependence, cigarettes, uncomplicated; F25.0 Schizoaffective disorder, bipolar type; F31.81 Bipolar II disorder; M54.50 Low back pain, unspecified; G89.29 Other chronic pain; Z62.810 Personal history of physical and sexual abuse in childhood
CPT/HCPCS: 36415; 80053; 80178; 85027; 86780; 87811; C9803-CS; U0003; U0005

== ENCOUNTER 2023-03-18 20:24 | Inpatient (IN) | payer OTHER ==
[2023-03-18 21:09] VITALS: BMI 27.3
[2023-03-18] MEDS ORDERED: NALOXONE HCL (KLOXXADO) 8 MG SPRAY NS PRN (22:23)
[2023-03-18] MEDS ORDERED: LOPERAMIDE HCL 2 MG CAPSULE PO PRN (22:23)
[2023-03-18] MEDS ORDERED: BENZONATATE 200 MG CAPSULE PO PRN (22:23)
[2023-03-18] MEDS ORDERED: NICOTINE 10 MG CARTRIDGE (INHALER) IH PRN (22:23)
[2023-03-18] MEDS ORDERED: DICYCLOMINE HCL 10 MG CAPSULE PO PRN (22:23)
[2023-03-18] MEDS ORDERED: METHOCARBAMOL 500 MG TABLET PO PRN (22:23)
[2023-03-18] MEDS ORDERED: BENZOCAINE/MENTHOL (CHLORASEPTIC ) LOZENGE MM PRN (22:23)
[2023-03-18] MEDS ORDERED: ONDANSETRON *ODT* 4 MG TABLET SL PRN (22:23)
[2023-03-18] MEDS ORDERED: IBUPROFEN 600 MG TABLET (FP) PO PRN (22:23)
[2023-03-18] MEDS ORDERED: NALOXONE HCL 0.4 MG/ML VIAL IM PRN (22:23)
[2023-03-18] MEDS ORDERED: MAG HYDROX/AL HYDROX/SIMETH 30 ML UNIT-DOSE CUP PO PRN (22:23)
[2023-03-18] MEDS ORDERED: guaiFENesin 600 MG TABLET.ER (FP) PO PRN (22:23)
[2023-03-18] MEDS ORDERED: BISMUTH SUBSALICYLATE 524 MG/30 ML PO PRN (22:23)
[2023-03-18] MEDS ORDERED: IBUPROFEN 400 MG TABLET (FP) PO PRN (22:23)
[2023-03-18] MEDS ORDERED: POLYETHYLENE GLYCOL (HEALTHYLAX) 3350 17 GM PACKET PO PRN (22:23)
[2023-03-18] MEDS ORDERED: ACETAMINOPHEN 325 MG TABLET (FP) PO PRN (22:23)
[2023-03-18] MEDS ORDERED: MAGNESIUM HYDROX 2400MG/30ML ORAL SUSPENSION 30 ML CUP PO PRN (22:23)
[2023-03-19] MEDS ORDERED: methaDONE HCL 10 MG TABLET PO ONE (10:00)
[2023-03-19] MEDS ORDERED: methaDONE 40 MG, methaDONE 20 MG PO ONE (10:00)
[2023-03-19] MEDS ORDERED: NICOTINE 21 MG/24 HOURS TOPICAL PATCH TD SCH (10:00)
[2023-03-19] MEDS ORDERED: PRENATAL VITAMINS W/ FOLIC ACID TABLET (FP) PO SCH (10:00)
[2023-03-19] MEDS ORDERED: chlordiazePOXIDE HCL 25 MG CAPSULE PO PRN (10:07)
[2023-03-19] MEDS: chlordiazePOXIDE HCL 25 MG CAPSULE PO SCH ×3 (10:39→22:08)
[2023-03-19 11:32] LABS: HEMATOCRIT 34.2 % (32.4-45.2); HEMOGLOBIN 11.6 GM/dL (10.7-15.3); MCH 29.9 pg (25.7-33.7); MCHC 33.9 g/dl (32.0-36.0); MEAN CELL VOLUME 88.1 fl (80-96); MEAN PLT VOLUME 8.7 fl (7.5-11.1); PLATELET COUNT 317 10^3/uL (134-434); RBC 3.88 M/mm3 (3.60-5.2); WHITE BLOOD COUNT 7.2 K/mm3 (4.0-10.0)
[2023-03-19 11:52] LABS: POTASSIUM 3.9 mmol/L (3.5-5.1)
[2023-03-19 11:55] LABS: ALBUMIN 3.1 g/dl (3.4-5.0); BLOOD UREA NITROGEN 12.9 mg/dL (7-18); CALCIUM 8.8 mg/dL (8.5-10.1)
[2023-03-19 12:00] LABS: BILIRUBIN,TOTAL 0.9 mg/dL (0.2-1); CREATININE 0.6 mg/dL (0.55-1.3)
[2023-03-19 21:29] VITALS: RESP 17
[2023-03-19] MEDS ORDERED: THIAMINE HCL 100 MG TABLET (FP) PO SCH (22:00)
[2023-03-19] MEDS ORDERED: MELATONIN 5 MG TABLETS PO SCH (22:00)
[2023-03-20] MEDS ORDERED: chlordiazePOXIDE HCL 25 MG CAPSULE PO SCH (05:00)
[2023-03-20] MEDS ORDERED: methaDONE HCL 40 MG DISPERSABLE TABLET PO SCH (07:15)
[2023-03-20 07:21] VITALS: BP 122/73; PULSE 57; TEMP 97.7
[2023-03-20] MEDS ORDERED: methaDONE 40 MG, methaDONE 20 MG PO SCH (07:30)
[2023-03-21] MEDS ORDERED: chlordiazePOXIDE HCL 10 MG CAPSULE PO PRN
[2023-03-21] MEDS ORDERED: chlordiazePOXIDE HCL 10 MG CAPSULE PO SCH (05:00)
[2023-03-22] MEDS ORDERED: chlordiazePOXIDE HCL 10 MG CAPSULE PO SCH (05:00)
[2023-03-23] MEDS ORDERED: chlordiazePOXIDE HCL 10 MG CAPSULE PO ONE (05:00)
== END 2023-03-20 08:54 | disposition left against medical advice (07) | DRG 770 ==
LOC: YASAS 20:24 → Y6N 23:02
PROVIDERS: ADMIT Allergy & Immunology; ATTEND Surgery
PROC: HZ2ZZZZ Detoxification Services for Substance Abuse Treatment (ICD-10-PCS; principal; 2023-03-18)
DX: F10.230 Alcohol dependence with withdrawal, uncomplicated (principal); F11.20 Opioid dependence, uncomplicated; F17.210 Nicotine dependence, cigarettes, uncomplicated; F25.0 Schizoaffective disorder, bipolar type; F31.81 Bipolar II disorder; F19.282 Other psychoactive substance dependence with psychoactive substance-induced sleep disorder; F19.24 Other psychoactive substance dependence with psychoactive substance-induced mood disorder; I10 Essential (primary) hypertension; E03.9 Hypothyroidism, unspecified; M32.9 Systemic lupus erythematosus, unspecified; M06.9 Rheumatoid arthritis, unspecified; M54.50 Low back pain, unspecified; Z62.810 Personal history of physical and sexual abuse in childhood
CPT/HCPCS: 36415; 80053; 81025; 85027; 86780; C9803-CS; U0003; U0005

== ENCOUNTER 2023-05-24 08:59 | Inpatient (IN) | payer OTHER ==
[2023-05-24 09:37] VITALS: BMI 28.1
[2023-05-24] MEDS ORDERED: guaiFENesin 600 MG TABLET.ER (FP) PO PRN (10:25)
[2023-05-24] MEDS ORDERED: LOPERAMIDE HCL 2 MG CAPSULE PO PRN (10:25)
[2023-05-24] MEDS ORDERED: chlordiazePOXIDE HCL 25 MG CAPSULE PO PRN (10:25)
[2023-05-24] MEDS ORDERED: IBUPROFEN 400 MG TABLET (FP) PO PRN (10:25)
[2023-05-24] MEDS ORDERED: BENZOCAINE/MENTHOL (CHLORASEPTIC ) LOZENGE MM PRN (10:25)
[2023-05-24] MEDS ORDERED: NICOTINE 21 MG/24 HOURS TOPICAL PATCH TD PRN (10:25)
[2023-05-24] MEDS ORDERED: POLYETHYLENE GLYCOL (HEALTHYLAX) 3350 17 GM PACKET PO PRN (10:25)
[2023-05-24] MEDS ORDERED: COLLOIDAL OATMEAL 1 BAR EACH TP PRN (10:25)
[2023-05-24] MEDS ORDERED: NALOXONE HCL (KLOXXADO) 8 MG SPRAY NS PRN (10:25)
[2023-05-24] MEDS ORDERED: BENZONATATE 200 MG CAPSULE PO PRN (10:25)
[2023-05-24] MEDS ORDERED: NALOXONE HCL 0.4 MG/ML VIAL IM PRN (10:25)
[2023-05-24] MEDS ORDERED: DICYCLOMINE HCL 10 MG CAPSULE PO PRN (10:25)
[2023-05-24] MEDS ORDERED: MAG HYDROX/AL HYDROX/SIMETH 30 ML UNIT-DOSE CUP PO PRN (10:25)
[2023-05-24] MEDS ORDERED: ACETAMINOPHEN 325 MG TABLET (FP) PO PRN (10:25)
[2023-05-24] MEDS ORDERED: BISMUTH SUBSALICYLATE 524 MG/30 ML PO PRN (10:25)
[2023-05-24] MEDS ORDERED: MAGNESIUM HYDROX 2400MG/30ML ORAL SUSPENSION 30 ML CUP PO PRN (10:25)
[2023-05-24] MEDS ORDERED: IBUPROFEN 600 MG TABLET (FP) PO PRN (10:25)
[2023-05-24] MEDS: ONDANSETRON *ODT* 4 MG TABLET SL PRN (12:17)
[2023-05-24] MEDS: chlordiazePOXIDE HCL 25 MG CAPSULE PO SCH ×2 (17:17→22:16)
[2023-05-24] MEDS: MELATONIN 5 MG TABLETS PO SCH (22:15)
[2023-05-24] MEDS: THIAMINE HCL 100 MG TABLET (FP) PO SCH (22:15)
[2023-05-25] MEDS: chlordiazePOXIDE HCL 25 MG CAPSULE PO SCH ×4 (04:58→22:22)
[2023-05-25] MEDS ORDERED: methaDONE HCL 10 MG TABLET PO SCH (06:45)
[2023-05-25] MEDS: methaDONE 40 MG, methaDONE 10 MG PO SCH (06:58)
[2023-05-25] MEDS ORDERED: traZODone HCL 50 MG TABLET (FP) PO PRN (09:48)
[2023-05-25] MEDS: PRENATAL VITAMINS W/ FOLIC ACID TABLET (FP) PO SCH (10:03)
[2023-05-25 11:42] LABS: POTASSIUM 4.4 mmol/L (3.5-5.1)
[2023-05-25 11:46] LABS: HEMATOCRIT 33.8 % (32.4-45.2); HEMOGLOBIN 10.7 GM/dL (10.7-15.3); MCH 27.5 pg (25.7-33.7); MCHC 31.6 g/dl (32.0-36.0); MEAN PLT VOLUME 8.6 fl (7.5-11.1); PLATELET COUNT 385 10^3/uL (134-434); RBC 3.88 M/mm3 (3.60-5.2); RDW 15.7 % (11.6-15.6); WHITE BLOOD COUNT 7.5 K/mm3 (4.0-10.0)
[2023-05-25 11:47] LABS: ALBUMIN 3.2 g/dl (3.4-5.0); BLOOD UREA NITROGEN 16.3 mg/dL (7-18)
[2023-05-25 11:50] LABS: CREATININE 0.6 mg/dL (0.55-1.3)
[2023-05-25 11:52] LABS: BILIRUBIN,TOTAL 0.4 mg/dL (0.2-1)
[2023-05-25] MEDS: LITHIUM CARBONATE 300 MG CAPSULE PO SCH ×2 (12:12→22:21)
[2023-05-25] MEDS: MELATONIN 5 MG TABLETS PO SCH (22:21)
[2023-05-25] MEDS: ARIPiprazole 10 MG TABLET PO SCH (22:21)
[2023-05-25] MEDS: THIAMINE HCL 100 MG TABLET (FP) PO SCH (22:21)
[2023-05-25] MEDS: traZODone HCL 50 MG TABLET (FP) PO SCH (22:21)
[2023-05-26] MEDS: chlordiazePOXIDE HCL 25 MG CAPSULE PO SCH ×4 (05:33→22:15)
[2023-05-26] MEDS: methaDONE 40 MG, methaDONE 10 MG PO SCH (05:33)
[2023-05-26] MEDS: LITHIUM CARBONATE 300 MG CAPSULE PO SCH ×2 (10:07→22:15)
[2023-05-26] MEDS: PRENATAL VITAMINS W/ FOLIC ACID TABLET (FP) PO SCH (10:08)
[2023-05-26] MEDS: THIAMINE HCL 100 MG TABLET (FP) PO SCH (22:15)
[2023-05-26] MEDS: ARIPiprazole 10 MG TABLET PO SCH (22:15)
[2023-05-26] MEDS: MELATONIN 5 MG TABLETS PO SCH (22:15)
[2023-05-26] MEDS: traZODone HCL 50 MG TABLET (FP) PO SCH (22:15)
[2023-05-27] MEDS ORDERED: chlordiazePOXIDE HCL 10 MG CAPSULE PO PRN
[2023-05-27] MEDS: methaDONE 40 MG, methaDONE 10 MG PO SCH (05:16)
[2023-05-27] MEDS: chlordiazePOXIDE HCL 10 MG CAPSULE PO SCH ×4 (05:17→22:20)
[2023-05-27] MEDS: LITHIUM CARBONATE 300 MG CAPSULE PO SCH ×2 (10:01→22:21)
[2023-05-27] MEDS: PRENATAL VITAMINS W/ FOLIC ACID TABLET (FP) PO SCH (10:02)
[2023-05-27] MEDS: traZODone HCL 50 MG TABLET (FP) PO SCH (22:21)
[2023-05-27] MEDS: ARIPiprazole 10 MG TABLET PO SCH (22:21)
[2023-05-27] MEDS: MELATONIN 5 MG TABLETS PO SCH (22:21)
[2023-05-27] MEDS: THIAMINE HCL 100 MG TABLET (FP) PO SCH (22:23)
[2023-05-28] MEDS: chlordiazePOXIDE HCL 10 MG CAPSULE PO SCH ×2 (05:18→17:12)
[2023-05-28] MEDS: methaDONE 40 MG, methaDONE 10 MG PO SCH (05:18)
[2023-05-28] MEDS: LITHIUM CARBONATE 300 MG CAPSULE PO SCH ×2 (09:48→22:05)
[2023-05-28] MEDS: PRENATAL VITAMINS W/ FOLIC ACID TABLET (FP) PO SCH (09:48)
[2023-05-28 21:34] VITALS: PULSE 77
[2023-05-28] MEDS: THIAMINE HCL 100 MG TABLET (FP) PO SCH (22:05)
[2023-05-28] MEDS: ARIPiprazole 10 MG TABLET PO SCH (22:05)
[2023-05-28] MEDS: traZODone HCL 50 MG TABLET (FP) PO SCH (22:05)
[2023-05-28] MEDS: MELATONIN 5 MG TABLETS PO SCH (22:06)
[2023-05-29] MEDS ORDERED: chlordiazePOXIDE HCL 10 MG CAPSULE PO ONE (05:00)
[2023-05-29] MEDS: methaDONE 40 MG, methaDONE 10 MG PO SCH (05:36)
[2023-05-29 06:51] VITALS: BP 113/75; RESP 16; TEMP 97.7
[2023-05-29] MEDS: ONDANSETRON *ODT* 4 MG TABLET SL PRN (07:15)
[2023-05-29] MEDS: PRENATAL VITAMINS W/ FOLIC ACID TABLET (FP) PO SCH (09:02)
[2023-05-29] MEDS: LITHIUM CARBONATE 300 MG CAPSULE PO SCH (09:03)
== END 2023-05-29 09:03 | disposition home or self-care (01) | DRG 773 ==
LOC: YASAS 08:59 → Y3N 10:42
PROVIDERS: ADMIT Allergy & Immunology; ATTEND Allergy & Immunology
PROC: HZ2ZZZZ Detoxification Services for Substance Abuse Treatment (ICD-10-PCS; principal; 2023-05-24)
DX: F10.230 Alcohol dependence with withdrawal, uncomplicated (principal); F11.20 Opioid dependence, uncomplicated; F14.20 Cocaine dependence, uncomplicated; F12.20 Cannabis dependence, uncomplicated; F17.210 Nicotine dependence, cigarettes, uncomplicated; F31.81 Bipolar II disorder; F19.280 Other psychoactive substance dependence with psychoactive substance-induced anxiety disorder; F19.282 Other psychoactive substance dependence with psychoactive substance-induced sleep disorder; E03.9 Hypothyroidism, unspecified; I10 Essential (primary) hypertension; M06.9 Rheumatoid arthritis, unspecified; M62.9 Disorder of muscle, unspecified; M79.7 Fibromyalgia; M54.50 Low back pain, unspecified; G89.29 Other chronic pain; R94.31 Abnormal electrocardiogram [ECG] [EKG]; Z96.653 Presence of artificial knee joint, bilateral; Z62.810 Personal history of physical and sexual abuse in childhood
CPT/HCPCS: 36415; 80053; 80178; 81025; 85027; 86780; 87635; Q0162

== ENCOUNTER 2023-08-04 12:33 | Inpatient (IN) | payer OTHER ==
[2023-08-04 13:02] VITALS: BMI 29.2
[2023-08-04] MEDS ORDERED: METHOCARBAMOL 500 MG TABLET PO PRN (14:18)
[2023-08-04] MEDS ORDERED: DICYCLOMINE HCL 10 MG CAPSULE PO PRN (14:18)
[2023-08-04] MEDS ORDERED: BENZOCAINE/MENTHOL (CHLORASEPTIC ) LOZENGE MM PRN (14:18)
[2023-08-04] MEDS ORDERED: BISMUTH SUBSALICYLATE 262 MG/15 ML BTL PO PRN (14:18)
[2023-08-04] MEDS ORDERED: LOPERAMIDE HCL 2 MG CAPSULE PO PRN (14:18)
[2023-08-04] MEDS ORDERED: IBUPROFEN 400 MG TABLET (FP) PO PRN (14:18)
[2023-08-04] MEDS ORDERED: ACETAMINOPHEN 325 MG TABLET (FP) PO PRN (14:18)
[2023-08-04] MEDS ORDERED: IBUPROFEN 600 MG TABLET (FP) PO PRN (14:18)
[2023-08-04] MEDS ORDERED: MAGNESIUM HYDROX 2400MG/30ML ORAL SUSPENSION 30 ML CUP PO PRN (14:18)
[2023-08-04] MEDS ORDERED: BENZONATATE 200 MG CAPSULE PO PRN (14:18)
[2023-08-04] MEDS ORDERED: guaiFENesin 600 MG TABLET.ER (FP) PO PRN (14:18)
[2023-08-04] MEDS ORDERED: hydrOXYzine PAMOATE 25 MG CAPSULE (FP) PO PRN (14:18)
[2023-08-04] MEDS ORDERED: POLYETHYLENE GLYCOL (HEALTHYLAX) 3350 17 GM PACKET PO PRN (14:18)
[2023-08-04] MEDS ORDERED: MAG HYDROX/AL HYDROX/SIMETH 30 ML UNIT-DOSE CUP PO PRN (14:18)
[2023-08-04] MEDS ORDERED: NALOXONE HCL 0.4 MG/ML VIAL IM PRN (14:18)
[2023-08-04] MEDS ORDERED: NALOXONE HCL (KLOXXADO) 8 MG SPRAY NS PRN (14:18)
[2023-08-04] MEDS ORDERED: NICOTINE POLACRILEX 2 MG GUM BUC PRN (14:24)
[2023-08-04] MEDS ORDERED: chlordiazePOXIDE HCL 25 MG CAPSULE ONE (15:23)
[2023-08-04] MEDS: chlordiazePOXIDE HCL 25 MG CAPSULE PO PRN ×2 (15:25→19:43)
[2023-08-04] MEDS: chlordiazePOXIDE HCL 25 MG CAPSULE PO SCH ×2 (16:56→22:11)
[2023-08-04] MEDS ORDERED: MELATONIN 5 MG TABLETS PO SCH (22:00)
[2023-08-04] MEDS: THIAMINE HCL 100 MG TABLET (FP) PO SCH (22:11)
[2023-08-05] MEDS: chlordiazePOXIDE HCL 25 MG CAPSULE PO SCH ×4 (04:57→22:20)
[2023-08-05] MEDS ORDERED: methaDONE HCL 40 MG DISPERSABLE TABLET PO SCH (09:00)
[2023-08-05] MEDS: methaDONE 40 MG, methaDONE 10 MG PO SCH (09:27)
[2023-08-05] MEDS: PRENATAL VITAMINS W/ FOLIC ACID TABLET (FP) PO SCH (09:28)
[2023-08-05] MEDS: NICOTINE 14 MG/24 HOURS TOPICAL PATCH TD SCH (09:28)
[2023-08-05] MEDS: ONDANSETRON *ODT* 4 MG TABLET SL PRN ×2 (09:34→17:53)
[2023-08-05] MEDS: LITHIUM CARBONATE 300 MG CAPSULE PO SCH ×2 (10:20→22:20)
[2023-08-05 11:12] LABS: HEMOGLOBIN 11.6 GM/dL (10.7-15.3); MCH 24.9 pg (25.7-33.7); MCHC 30.6 g/dl (32.0-36.0); MEAN CELL VOLUME 81.4 fl (80-96); MEAN PLT VOLUME 7.8 fl (7.5-11.1); PLATELET COUNT 553 10^3/uL (134-434); RBC 4.67 M/mm3 (3.60-5.2); RDW 16.9 % (11.6-15.6); WHITE BLOOD COUNT 11.1 K/mm3 (4.0-10.0)
[2023-08-05 12:32] LABS: POTASSIUM 4.5 mmol/L (3.5-5.1)
[2023-08-05 12:49] LABS: ALBUMIN 3.4 g/dl (3.4-5.0)
[2023-08-05 12:50] LABS: CALCIUM 9.3 mg/dL (8.5-10.1); TOT PROT 6.8 g/dl (6.4-8.2)
[2023-08-05 12:51] LABS: BLOOD UREA NITROGEN 20.7 mg/dL (7-18)
[2023-08-05 12:52] LABS: BILIRUBIN,TOTAL 0.3 mg/dL (0.2-1); CREATININE 0.7 mg/dL (0.55-1.3)
[2023-08-05] MEDS: chlordiazePOXIDE HCL 25 MG CAPSULE PO PRN (19:26)
[2023-08-05] MEDS: traZODone HCL 100 MG TABLET (FP) PO PRN (22:18)
[2023-08-05] MEDS: THIAMINE HCL 100 MG TABLET (FP) PO SCH (22:18)
[2023-08-05] MEDS: ARIPiprazole 10 MG TABLET PO SCH (22:19)
[2023-08-06] MEDS: methaDONE 40 MG, methaDONE 10 MG PO SCH (05:26)
[2023-08-06] MEDS: chlordiazePOXIDE HCL 25 MG CAPSULE PO SCH ×4 (05:27→22:14)
[2023-08-06] MEDS: LITHIUM CARBONATE 300 MG CAPSULE PO SCH ×2 (10:00→22:15)
[2023-08-06] MEDS: PRENATAL VITAMINS W/ FOLIC ACID TABLET (FP) PO SCH (10:00)
[2023-08-06] MEDS: NICOTINE 14 MG/24 HOURS TOPICAL PATCH TD SCH (10:03)
[2023-08-06] MEDS: ONDANSETRON *ODT* 4 MG TABLET SL PRN (12:33)
[2023-08-06 18:16] LABS: EPI CELLS 13 /uL (0-25.1); HYALINE CASTS 0 /uL (0-3.1); PH,URINE 7.5 (5.0-8.0); URINE APPEARANCE CLEAR; URINE BACTERIA >9,000 /uL (0-1359); URINE BILIRUBIN NEGATIVE (NEGATIVE); URINE COLOR YELLOW; URINE GLUCOSE (UA) NEGATIVE (NEGATIVE); URINE KETONE NEGATIVE (NEGATIVE); URINE LEUK ESTERASE NEGATIVE (NEGATIVE); URINE NITRITE POSITIVE (NEGATIVE); URINE PROTEIN NEGATIVE (NEGATIVE); URINE RBC 7 /uL (0-23.9); URINE UROBILINOGEN 0.2 mg/dL (0.2-1.0); URINE WBC 13 /uL (0-25.8)
[2023-08-06] MEDS: traZODone HCL 100 MG TABLET (FP) PO PRN (22:14)
[2023-08-06] MEDS: THIAMINE HCL 100 MG TABLET (FP) PO SCH (22:14)
[2023-08-06] MEDS: ARIPiprazole 10 MG TABLET PO SCH (22:14)
[2023-08-07] MEDS ORDERED: chlordiazePOXIDE HCL 10 MG CAPSULE PO PRN
[2023-08-07] MEDS: chlordiazePOXIDE HCL 10 MG CAPSULE PO SCH ×4 (05:17→22:06)
[2023-08-07] MEDS: methaDONE 40 MG, methaDONE 10 MG PO SCH (05:18)
[2023-08-07 09:14] LABS: CALCIUM 9.3 mg/dL (8.5-10.1); POTASSIUM 4.9 mmol/L (3.5-5.1)
[2023-08-07 09:15] LABS: BLOOD UREA NITROGEN 11.1 mg/dL (7-18)
[2023-08-07 09:18] LABS: BASO % 0.4 % (0-2.0); CREATININE 0.8 mg/dL (0.55-1.3); EOS % 1.6 % (0-4.5); HEMATOCRIT 34.2 % (32.4-45.2); HEMOGLOBIN 11.3 GM/dL (10.7-15.3); MCH 26.3 pg (25.7-33.7); MEAN CELL VOLUME 79.6 fl (80-96); MONO % 6.4 % (3.8-10.2); NEUT % 66.6 % (42.8-82.8); PLATELET COUNT 467 10^3/uL (134-434); RBC 4.29 M/mm3 (3.60-5.2); RDW 16.9 % (11.6-15.6); WHITE BLOOD COUNT 7.9 K/mm3 (4.0-10.0)
[2023-08-07] MEDS: NICOTINE 14 MG/24 HOURS TOPICAL PATCH TD SCH (10:11)
[2023-08-07] MEDS: LITHIUM CARBONATE 300 MG CAPSULE PO SCH ×2 (10:14→22:06)
[2023-08-07] MEDS: AMOX TR/POT CLAV 875MG/125MG TABLETS (FP) PO SCH ×2 (10:15→17:38)
[2023-08-07] MEDS: PRENATAL VITAMINS W/ FOLIC ACID TABLET (FP) PO SCH (10:15)
[2023-08-07] MEDS ORDERED: BENZONATATE 200 MG CAPSULE PO PRN (10:16)
[2023-08-07] MEDS: PANTOPRAZOLE 20 MG TABLET PO SCH (10:47)
[2023-08-07] MEDS: ARIPiprazole 10 MG TABLET PO SCH (22:06)
[2023-08-07] MEDS: THIAMINE HCL 100 MG TABLET (FP) PO SCH (22:06)
[2023-08-07] MEDS: traZODone HCL 100 MG TABLET (FP) PO PRN (22:09)
[2023-08-08] MEDS: methaDONE 40 MG, methaDONE 10 MG PO SCH (05:45)
[2023-08-08] MEDS: chlordiazePOXIDE HCL 10 MG CAPSULE PO SCH ×2 (05:45→17:19)
[2023-08-08] MEDS: AMOX TR/POT CLAV 875MG/125MG TABLETS (FP) PO SCH ×2 (07:07→17:19)
[2023-08-08] MEDS: PRENATAL VITAMINS W/ FOLIC ACID TABLET (FP) PO SCH (09:22)
[2023-08-08] MEDS: PANTOPRAZOLE 20 MG TABLET PO SCH (09:22)
[2023-08-08] MEDS: LITHIUM CARBONATE 300 MG CAPSULE PO SCH ×2 (09:23→22:16)
[2023-08-08] MEDS: NICOTINE 14 MG/24 HOURS TOPICAL PATCH TD SCH (09:23)
[2023-08-08] MEDS: THIAMINE HCL 100 MG TABLET (FP) PO SCH (22:16)
[2023-08-08] MEDS: ARIPiprazole 10 MG TABLET PO SCH (22:16)
[2023-08-08] MEDS: traZODone HCL 100 MG TABLET (FP) PO PRN (22:18)
[2023-08-09] MEDS ORDERED: chlordiazePOXIDE HCL 10 MG CAPSULE PO ONE (05:00)
[2023-08-09] MEDS: methaDONE 40 MG, methaDONE 10 MG PO SCH (05:22)
[2023-08-09] MEDS: AMOX TR/POT CLAV 875MG/125MG TABLETS (FP) PO SCH (07:43)
[2023-08-09 09:18] VITALS: BP 118/72; PULSE 81; RESP 18; TEMP 96.9
[2023-08-09] MEDS: PANTOPRAZOLE 20 MG TABLET PO SCH (09:48)
[2023-08-09] MEDS: NICOTINE 14 MG/24 HOURS TOPICAL PATCH TD SCH (09:49)
[2023-08-09] MEDS: PRENATAL VITAMINS W/ FOLIC ACID TABLET (FP) PO SCH (09:49)
[2023-08-09] MEDS: LITHIUM CARBONATE 300 MG CAPSULE PO SCH (10:35)
== END 2023-08-09 11:13 | disposition home or self-care (01) | DRG 773 ==
LOC: YASAS 12:33 → Y6N 15:22
PROVIDERS: ADMIT Allergy & Immunology; ATTEND Surgery
PROC: HZ2ZZZZ Detoxification Services for Substance Abuse Treatment (ICD-10-PCS; principal; 2023-08-04)
DX: F10.230 Alcohol dependence with withdrawal, uncomplicated (principal); F11.20 Opioid dependence, uncomplicated; F14.20 Cocaine dependence, uncomplicated; F17.210 Nicotine dependence, cigarettes, uncomplicated; F10.280 Alcohol dependence with alcohol-induced anxiety disorder; F10.282 Alcohol dependence with alcohol-induced sleep disorder; F31.81 Bipolar II disorder; D72.829 Elevated white blood cell count, unspecified; I10 Essential (primary) hypertension; K44.9 Diaphragmatic hernia without obstruction or gangrene; M32.9 Systemic lupus erythematosus, unspecified; M54.50 Low back pain, unspecified; G89.29 Other chronic pain; R05.9 Cough, unspecified; R79.89 Other specified abnormal findings of blood chemistry; R73.9 Hyperglycemia, unspecified; Z96.653 Presence of artificial knee joint, bilateral; Z62.810 Personal history of physical and sexual abuse in childhood
CPT/HCPCS: 0241U-QW; 36415; 71046-TC-FY; 80048; 80053; 80307; 81003; 81025; 85025; 85027; 86780; 87635; 87811; 93005; 93010; Q0162

== ENCOUNTER 2023-12-05 08:53 | Inpatient (IN) | payer OTHER ==
[2023-12-05 09:29] VITALS: BMI 29.6
[2023-12-05] MEDS ORDERED: NALOXONE HCL 0.4 MG/ML VIAL IM PRN (10:28)
[2023-12-05] MEDS ORDERED: guaiFENesin 600 MG TABLET.ER (FP) PO PRN (10:28)
[2023-12-05] MEDS ORDERED: NICOTINE POLACRILEX 2 MG GUM BUC PRN (10:28)
[2023-12-05] MEDS ORDERED: DICYCLOMINE HCL 10 MG CAPSULE PO PRN (10:28)
[2023-12-05] MEDS ORDERED: LOPERAMIDE HCL 2 MG CAPSULE PO PRN (10:28)
[2023-12-05] MEDS ORDERED: BENZONATATE 200 MG CAPSULE PO PRN (10:28)
[2023-12-05] MEDS ORDERED: MAGNESIUM HYDROX 2400MG/30ML ORAL SUSPENSION 30 ML CUP PO PRN (10:28)
[2023-12-05] MEDS ORDERED: PROCHLORPERAZINE MALEATE 5 MG TABLET PO PRN (10:28)
[2023-12-05] MEDS ORDERED: NALOXONE HCL (KLOXXADO) 8 MG SPRAY NS PRN (10:28)
[2023-12-05] MEDS ORDERED: MAG HYDROX/AL HYDROX/SIMETH 30 ML UNIT-DOSE CUP PO PRN (10:28)
[2023-12-05] MEDS ORDERED: POLYETHYLENE GLYCOL (HEALTHYLAX) 3350 17 GM PACKET PO PRN (10:28)
[2023-12-05] MEDS ORDERED: IBUPROFEN 400 MG TABLET (FP) PO PRN (10:28)
[2023-12-05] MEDS ORDERED: NICOTINE 21 MG/24 HOURS TOPICAL PATCH ONE (11:31)
[2023-12-05] MEDS ORDERED: PRENATAL VITAMINS W/ FOLIC ACID TABLET (FP) PO ONE (11:31)
[2023-12-05] MEDS ORDERED: chlordiazePOXIDE HCL 25 MG CAPSULE ONE (11:31)
[2023-12-05] MEDS: NICOTINE 21 MG/24 HOURS TOPICAL PATCH TD SCH (11:36)
[2023-12-05] MEDS: chlordiazePOXIDE HCL 25 MG CAPSULE PO SCH (11:36)
[2023-12-05] MEDS: PRENATAL VITAMINS W/ FOLIC ACID TABLET (FP) PO SCH (11:38)
[2023-12-05] MEDS: chlordiazePOXIDE HCL 25 MG CAPSULE PO PRN (15:07)
[2023-12-05] MEDS: BISMUTH SUBSALICYLATE 524 MG/30 ML PO PRN (18:18)
[2023-12-05] MEDS: ONDANSETRON *ODT* 4 MG TABLET SL PRN (18:39)
[2023-12-05] MEDS: cloNIDine HCL 0.1 MG TABLET PO PRN (21:16)
[2023-12-05] MEDS ORDERED: traZODone HCL 50 MG TABLET (FP) PO SCH (22:00)
[2023-12-05] MEDS ORDERED: MELATONIN 5 MG TABLETS PO SCH (22:00)
[2023-12-05] MEDS: LITHIUM CARBONATE 300 MG CAPSULE PO SCH (22:33)
[2023-12-05] MEDS: traZODone HCL 50 MG TABLET (FP) PO SCH (22:33)
[2023-12-05] MEDS: ARIPiprazole 10 MG TABLET PO SCH (22:34)
[2023-12-05] MEDS: THIAMINE HCL 100 MG TABLET (FP) PO SCH (22:34)
[2023-12-06] MEDS: METHOCARBAMOL 500 MG TABLET PO PRN (02:36)
[2023-12-06] MEDS: methaDONE 40 MG, methaDONE 10 MG PO SCH (10:34)
[2023-12-06 11:51] LABS: POTASSIUM 4.3 mmol/L (3.5-5.1)
[2023-12-06 12:00] LABS: CALCIUM 9.9 mg/dL (8.5-10.1)
[2023-12-06 12:01] LABS: ALBUMIN 3.8 g/dl (3.4-5.0); BLOOD UREA NITROGEN 12.7 mg/dL (7-18)
[2023-12-06 12:03] LABS: HEMATOCRIT 43.4 % (32.4-45.2); HEMOGLOBIN 14.9 GM/dL (10.7-15.3); MCH 30.1 pg (25.7-33.7); MCHC 34.2 g/dl (32.0-36.0); PLATELET COUNT 246 10^3/uL (134-434); RBC 4.93 M/mm3 (3.60-5.2); RDW 19.3 % (11.6-15.6); WHITE BLOOD COUNT 6.7 K/mm3 (4.0-10.0)
[2023-12-06 12:04] LABS: CREATININE 0.7 mg/dL (0.55-1.3)
[2023-12-06 12:05] LABS: TOT PROT 7.6 g/dl (6.4-8.2)
[2023-12-07] MEDS: chlordiazePOXIDE HCL 25 MG CAPSULE PO SCH (05:09)
[2023-12-08] MEDS ORDERED: chlordiazePOXIDE HCL 10 MG CAPSULE PO PRN
[2023-12-08] MEDS: ACETAMINOPHEN 325 MG TABLET (FP) PO PRN (05:02)
[2023-12-08] MEDS: chlordiazePOXIDE HCL 10 MG CAPSULE PO SCH (05:02)
[2023-12-09] MEDS: chlordiazePOXIDE HCL 10 MG CAPSULE PO SCH (05:21)
[2023-12-09] MEDS: IBUPROFEN 600 MG TABLET (FP) PO PRN (07:44)
[2023-12-09] MEDS: hydrOXYzine PAMOATE 25 MG CAPSULE (FP) PO PRN (14:12)
[2023-12-09] MEDS: BENZOCAINE/MENTHOL (CHLORASEPTIC ) LOZENGE MM PRN (18:54)
[2023-12-10] MEDS: chlordiazePOXIDE HCL 10 MG CAPSULE PO ONE (05:10)
[2023-12-10 05:53] VITALS: BP 137/87; PULSE 89; RESP 16; TEMP 97.7
== END 2023-12-10 06:31 | disposition home or self-care (01) | DRG 773 ==
LOC: YASAS 08:53 → Y3N 11:12
PROVIDERS: ADMIT Allergy & Immunology; ATTEND Surgery
PROC: HZ2ZZZZ Detoxification Services for Substance Abuse Treatment (ICD-10-PCS; principal; 2023-12-05)
DX: F10.230 Alcohol dependence with withdrawal, uncomplicated (principal); F11.20 Opioid dependence, uncomplicated; F14.20 Cocaine dependence, uncomplicated; F12.20 Cannabis dependence, uncomplicated; F17.210 Nicotine dependence, cigarettes, uncomplicated; F31.81 Bipolar II disorder; F25.0 Schizoaffective disorder, bipolar type; F19.280 Other psychoactive substance dependence with psychoactive substance-induced anxiety disorder; F19.282 Other psychoactive substance dependence with psychoactive substance-induced sleep disorder; E03.9 Hypothyroidism, unspecified; I10 Essential (primary) hypertension; L30.9 Dermatitis, unspecified; M79.7 Fibromyalgia; M06.9 Rheumatoid arthritis, unspecified; M32.9 Systemic lupus erythematosus, unspecified; Z96.653 Presence of artificial knee joint, bilateral; Z62.810 Personal history of physical and sexual abuse in childhood; Z63.8 Other specified problems related to primary support group
CPT/HCPCS: 36415; 80053; 80178; 80305; 81025; 85027; 87635; 87811; 93005; 93010; Q0162

== ENCOUNTER 2024-05-10 08:58 | Inpatient (IN) | payer OTHER ==
[2024-05-10 09:27] VITALS: BMI 34.7
[2024-05-10] MEDS ORDERED: DICYCLOMINE HCL 10 MG CAPSULE PO PRN (09:47)
[2024-05-10] MEDS ORDERED: ONDANSETRON *ODT* 4 MG TABLET SL PRN (09:47)
[2024-05-10] MEDS ORDERED: MAG HYDROX/AL HYDROX/SIMETH 30 ML UNIT-DOSE CUP PO PRN (09:47)
[2024-05-10] MEDS ORDERED: IBUPROFEN 400 MG TABLET (FP) PO PRN (09:47)
[2024-05-10] MEDS ORDERED: NICOTINE POLACRILEX 2 MG GUM BUC PRN (09:47)
[2024-05-10] MEDS ORDERED: BENZONATATE 200 MG CAPSULE PO PRN (09:47)
[2024-05-10] MEDS ORDERED: hydrOXYzine PAMOATE 25 MG CAPSULE (FP) PO PRN (09:47)
[2024-05-10] MEDS ORDERED: MAGNESIUM HYDROX 2400MG/30ML ORAL SUSPENSION 30 ML CUP PO PRN (09:47)
[2024-05-10] MEDS ORDERED: guaiFENesin 600 MG TABLET.ER (FP) PO PRN (09:47)
[2024-05-10] MEDS ORDERED: POLYETHYLENE GLYCOL (HEALTHYLAX) 3350 17 GM PACKET PO PRN (09:47)
[2024-05-10] MEDS ORDERED: NALOXONE (NARCAN) HCL 4 MG/0.1 ML SPRAY NS PRN (09:47)
[2024-05-10] MEDS ORDERED: LOPERAMIDE HCL 2 MG CAPSULE PO PRN (09:47)
[2024-05-10] MEDS ORDERED: NALOXONE HCL 0.4 MG/ML VIAL IM PRN (09:47)
[2024-05-10] MEDS ORDERED: BENZOCAINE/MENTHOL (CHLORASEPTIC ) LOZENGE MM PRN (09:47)
[2024-05-10] MEDS ORDERED: NICOTINE POLACRILEX 2 MG LOZENGE BC PRN (09:47)
[2024-05-10] MEDS ORDERED: chlordiazePOXIDE HCL 25 MG CAPSULE ONE (10:41)
[2024-05-10] MEDS ORDERED: NICOTINE 14 MG/24 HOURS TOPICAL PATCH TD ONE (10:41)
[2024-05-10] MEDS ORDERED: PRENATAL VITAMINS W/ FOLIC ACID TABLET (FP) PO ONE (10:41)
[2024-05-10] MEDS: NICOTINE 14 MG/24 HOURS TOPICAL PATCH TD SCH (10:44)
[2024-05-10] MEDS: PRENATAL VITAMINS W/ FOLIC ACID TABLET (FP) PO SCH (10:44)
[2024-05-10] MEDS: chlordiazePOXIDE HCL 25 MG CAPSULE PO SCH (10:45)
[2024-05-10] MEDS ORDERED: methaDONE 40 MG, methaDONE 10 MG PO SCH (10:45)
[2024-05-10] MEDS: cloNIDine HCL 0.1 MG TABLET PO PRN (13:58)
[2024-05-10] MEDS: ONDANSETRON *ODT* 4 MG TABLET SL ONE (13:58)
[2024-05-10] MEDS: chlordiazePOXIDE HCL 25 MG CAPSULE PO PRN (13:58)
[2024-05-10] MEDS: ALBUTEROL SO4 HFA INHALER IH PRN (14:49)
[2024-05-10] MEDS: cloNIDine HCL 0.1 MG TABLET PO ONE (15:02)
[2024-05-10] MEDS: hydrOXYzine PAMOATE 25 MG CAPSULE (FP) PO PRN (15:08)
[2024-05-10] MEDS: BISMUTH SUBSALICYLATE 524 MG/30 ML PO PRN (17:07)
[2024-05-10] MEDS: IBUPROFEN 600 MG TABLET (FP) PO PRN (17:28)
[2024-05-10] MEDS: METHOCARBAMOL 500 MG TABLET PO PRN (19:11)
[2024-05-10] MEDS ORDERED: MELATONIN 5 MG TABLETS PO SCH (22:00)
[2024-05-10] MEDS: THIAMINE 100 MG TABLET PO SCH (22:13)
[2024-05-10] MEDS: ARIPiprazole 10 MG TABLET PO SCH (22:14)
[2024-05-10] MEDS: traZODone HCL 100 MG TABLET (FP) PO SCH (22:14)
[2024-05-10] MEDS: ACETAMINOPHEN 325 MG TABLET (FP) PO PRN (22:15)
[2024-05-10] MEDS: LITHIUM CARBONATE 300 MG CAPSULE PO SCH (22:16)
[2024-05-11] MEDS: methaDONE 40 MG, methaDONE 10 MG PO SCH (05:34)
[2024-05-11] MEDS ORDERED: methaDONE HCL 40 MG DISPERSABLE TABLET PO SCH (06:00)
[2024-05-11 11:50] LABS: POTASSIUM 3.9 mmol/L (3.5-5.1)
[2024-05-11 11:56] LABS: ALBUMIN 3.6 g/dl (3.4-5.0); BLOOD UREA NITROGEN 7.8 mg/dL (7-18); CALCIUM 8.8 mg/dL (8.5-10.1)
[2024-05-11 11:58] LABS: CREATININE 0.5 mg/dL (0.55-1.3)
[2024-05-11 12:00] LABS: BILIRUBIN,TOTAL 0.6 mg/dL (0.2-1); TOT PROT 7.3 g/dl (6.4-8.2)
[2024-05-11 12:11] LABS: HEMOGLOBIN 14.3 GM/dL (10.7-15.3); MCH 32.3 pg (25.7-33.7); MEAN CELL VOLUME 94.8 fl (80-96); MEAN PLT VOLUME 8.4 fl (7.5-11.1); PLATELET COUNT 205 10^3/uL (134-434); RBC 4.43 M/mm3 (3.60-5.2); RDW 16.9 % (11.6-15.6); WHITE BLOOD COUNT 5.5 K/mm3 (4.0-10.0)
[2024-05-12] MEDS: chlordiazePOXIDE HCL 25 MG CAPSULE PO SCH (05:25)
[2024-05-12 06:24] VITALS: TEMP 97.8
[2024-05-12 09:09] VITALS: BP 137/89; PULSE 75; RESP 18
[2024-05-13] MEDS ORDERED: chlordiazePOXIDE HCL 10 MG CAPSULE PO PRN
[2024-05-13] MEDS ORDERED: chlordiazePOXIDE HCL 10 MG CAPSULE PO SCH (05:00)
[2024-05-14] MEDS ORDERED: chlordiazePOXIDE HCL 10 MG CAPSULE PO SCH (05:00)
[2024-05-15] MEDS ORDERED: chlordiazePOXIDE HCL 10 MG CAPSULE PO ONE (05:00)
== END 2024-05-12 09:12 | disposition left against medical advice (07) | DRG 770 ==
LOC: YASAS 08:58 → Y3N 10:21
PROVIDERS: ADMIT Allergy & Immunology; ATTEND Surgery
PROC: HZ2ZZZZ Detoxification Services for Substance Abuse Treatment (ICD-10-PCS; principal; 2024-05-10)
DX: F10.230 Alcohol dependence with withdrawal, uncomplicated (principal); F12.20 Cannabis dependence, uncomplicated; F14.20 Cocaine dependence, uncomplicated; F17.210 Nicotine dependence, cigarettes, uncomplicated; F19.280 Other psychoactive substance dependence with psychoactive substance-induced anxiety disorder; F19.282 Other psychoactive substance dependence with psychoactive substance-induced sleep disorder; F31.81 Bipolar II disorder; I10 Essential (primary) hypertension; K21.9 Gastro-esophageal reflux disease without esophagitis; M54.50 Low back pain, unspecified; G89.29 Other chronic pain; Z86.69 Personal history of other diseases of the nervous system and sense organs
CPT/HCPCS: 36415; 80053; 80178; 80305; 80307; 81025; 85027; 86780; 93005; 93010; Q0162

== ENCOUNTER 2025-05-11 08:27 | Inpatient (IN) | payer OTHER ==
[2025-05-11 08:52] VITALS: BMI 29.5
[2025-05-11] MEDS ORDERED: NICOTINE POLACRILEX 2 MG GUM BUC PRN (09:18)
[2025-05-11] MEDS ORDERED: BENZONATATE 200 MG CAPSULE PO PRN (09:18)
[2025-05-11] MEDS ORDERED: MAGNESIUM HYDROX 2400MG/30ML ORAL SUSPENSION 30 ML CUP PO PRN (09:18)
[2025-05-11] MEDS ORDERED: ACETAMINOPHEN 325 MG TABLET (FP) PO PRN (09:18)
[2025-05-11] MEDS ORDERED: NALOXONE (NARCAN) HCL 4 MG/0.1 ML SPRAY NS PRN (09:18)
[2025-05-11] MEDS ORDERED: DICYCLOMINE HCL 10 MG CAPSULE PO PRN (09:18)
[2025-05-11] MEDS ORDERED: guaiFENesin 600 MG TABLET.ER (FP) PO PRN (09:18)
[2025-05-11] MEDS ORDERED: POLYETHYLENE GLYCOL (HEALTHYLAX) 3350 17 GM PACKET PO PRN (09:18)
[2025-05-11] MEDS ORDERED: ONDANSETRON *ODT* 4 MG TABLET ONE (10:07)
[2025-05-11] MEDS: ONDANSETRON *ODT* 4 MG TABLET SL PRN (10:08)
[2025-05-11] MEDS: PRENATAL VITAMINS W/ FOLIC ACID TABLET (FP) PO SCH (10:09)
[2025-05-11] MEDS: PANTOPRAZOLE 40 MG TABLET PO SCH (10:38)
[2025-05-11] MEDS: amLODIPine BESYLATE 5 MG TABLET (FP) PO SCH (10:38)
[2025-05-11] MEDS: IBUPROFEN 600 MG TABLET (FP) PO PRN (10:41)
[2025-05-11] MEDS: MAG HYDROX/AL HYDROX/SIMETH 30 ML UNIT-DOSE CUP PO PRN (13:43)
[2025-05-11] MEDS: LOPERAMIDE HCL 2 MG CAPSULE PO PRN (13:44)
[2025-05-11] MEDS: IBUPROFEN 400 MG TABLET (FP) PO PRN (17:36)
[2025-05-11] MEDS: BISMUTH SUBSALICYLATE 524 MG/30 ML PO PRN (17:40)
[2025-05-11] MEDS: METHOCARBAMOL 500 MG TABLET PO PRN (19:04)
[2025-05-11] MEDS: amLODIPine BESYLATE 5 MG TABLET (FP) PO ONE (20:13)
[2025-05-11] MEDS: MELATONIN 5 MG TABLETS PO SCH (22:30)
[2025-05-11] MEDS: THIAMINE 100 MG TABLET PO SCH (22:30)
[2025-05-11] MEDS: traZODone HCL 50 MG TABLET (FP) PO SCH (22:30)
[2025-05-11] MEDS: LITHIUM CARBONATE 300 MG CAPSULE PO SCH (22:47)
[2025-05-12] MEDS: ALBUTEROL SO4 HFA INHALER IH PRN (03:54)
[2025-05-12] MEDS: BENZOCAINE/MENTHOL (CHLORASEPTIC ) LOZENGE MM PRN (03:55)
[2025-05-12 11:40] LABS: IMMATURE PLATELET FRACTION # 7.10 x10^3/uL; MCHC 34.1 g/dl (32.2-35.5); MEAN CELL VOLUME 93.7 fl (79.4-94.8); MEAN PLT VOLUME 11.2 fl (9.4-12.3); RDW 13.2 % (12.3-16.6)
[2025-05-12 13:15] LABS: CO2 26.0 mmol/L (21-32); GLUCOSE,RANDOM 105.0 mg/dL (74-106)
[2025-05-12 13:18] LABS: CREATININE 0.7 mg/dL (0.55-1.3); SGOT/AST 90.0 U/L (15-37); SGPT/ALT 51.0 U/L (13-61)
[2025-05-12 13:19] LABS: TOT PROT 6.6 g/dl (6.4-8.2)
[2025-05-12 13:21] LABS: ALK PHOS 114.0 U/L (45-117)
[2025-05-12] MEDS ORDERED: SIMETHICONE 80 MG TAB.CHEW (FP) PO PRN (20:03)
[2025-05-12] MEDS: METOPROLOL TARTRATE 25 MG TABLET (FP) PO ONE (20:48)
[2025-05-13] MEDS: NICOTINE POLACRILEX 2 MG LOZENGE BC PRN (17:51)
[2025-05-13] MEDS: amLODIPine BESYLATE 5 MG TABLET (FP) PO ONE (20:55)
[2025-05-13] MEDS: ASPIRIN COATED 81 MG TABLET.EC PO SCH (20:55)
[2025-05-13] MEDS ORDERED: FAMOTIDINE 20 MG TABLET PO SCH (22:00)
[2025-05-15 09:58] VITALS: BP 138/92; PULSE 108; RESP 20; TEMP 97.6
== END 2025-05-15 10:59 | disposition home or self-care (01) | DRG 775 ==
LOC: YASAS 08:27 → Y6N 10:06
PROVIDERS: ADMIT Neuromusculoskeletal Medicine & OMM; ATTEND Family Medicine Addiction Medicine
PROC: HZ2ZZZZ Detoxification Services for Substance Abuse Treatment (ICD-10-PCS; principal; 2025-05-11)
DX: F10.230 Alcohol dependence with withdrawal, uncomplicated (principal); F10.20 Alcohol dependence, uncomplicated; F13.20 Sedative, hypnotic or anxiolytic dependence, uncomplicated; F17.210 Nicotine dependence, cigarettes, uncomplicated; F31.81 Bipolar II disorder; F19.282 Other psychoactive substance dependence with psychoactive substance-induced sleep disorder; F19.280 Other psychoactive substance dependence with psychoactive substance-induced anxiety disorder; F19.24 Other psychoactive substance dependence with psychoactive substance-induced mood disorder; F41.9 Anxiety disorder, unspecified; I10 Essential (primary) hypertension; J43.9 Emphysema, unspecified; L30.9 Dermatitis, unspecified; M54.50 Low back pain, unspecified; G89.29 Other chronic pain; Z62.810 Personal history of physical and sexual abuse in childhood; Z63.8 Other specified problems related to primary support group
CPT/HCPCS: 36415; 80053; 80305; 80307; 81025; 85027; 86780; 93005; 93010; Q0162